=== PATIENT | male | born 1935 | race Caucasian/White ===

== ENCOUNTER 2020-02-09 20:36 | Observation (INO) ==
[2020-02-09] MEDS ORDERED: METOCLOPRAMIDE HCL INJ 5 MG/ML 2 ML VIAL IV ONE (21:13)
[2020-02-09] MEDS ORDERED: SODIUM CHLORIDE 0.9% 1000ML 500 ML IV ONE (21:13)
[2020-02-09] MEDS ORDERED: OPTIRAY 320 125ml IV PRN (21:29)
--- NOTE | 2020-02-09 21:30 | Emergency Department Note ---
ED Visit Note I assisted Dr. Oliva in the care of this patient. Please see attending attestation. Nicholas Pagan DO Resident, Family & Community Medicine, [facility] . Resident Activity Tracking Resident Involvement: Resident Care Provided Care Provided: Adult ED
[2020-02-09 21:33] LABS: Basophils # (auto) 0.02 K/uL (0-0.2); Basophils % (auto) 0.2 %; Eosinophils # (auto) 0.13 K/uL (0-0.5); Eosinophils % (auto) 1.3 %; Hemoglobin 15.6 g/dL (14.0-18.0); Immature Granulocytes # (auto) 0.01 K/uL (0.00-0.02); Immature Granulocytes % (auto) 0.1 %; Lymphocytes # (auto) 0.86 K/uL (1.2-3.4); Lymphocytes % (auto) 8.6 %; Mean Corpuscular Hemoglobin 34.8 pg (25-34); Mean Corpuscular Hgb Conc 33.9 g/dL (32-36); Mean Corpuscular Volume 102.7 fL (80-100); Mean Platelet Volume 10.8 fL (7.4-10.4); Monocytes # (auto) 0.23 K/uL (0.11-0.59); Monocytes % (auto) 2.3 %; Neutrophils # (auto) 8.77 K/uL (1.4-6.5); Neutrophils % (auto) 87.5 %; Platelet Count 170 K/uL (130-400); RDW Coefficient of Variation 13.8 % (11.5-14.5); Red Blood Count 4.48 M/uL (4.7-6.1); White Blood Count 10.02 K/uL (4.8-10.8)
[2020-02-09 21:44] LABS: Albumin Level 3.8 gm/dl (3.4-5.0); BUN Creatinine Ratio 7.6 (10-20); Bilirubin,Total 0.7 mg/dl (0.2-1); Calcium 9.1 mg/dl (8.5-10.1); Creatinine Clr Calc Pharmacy 35.3 ml/min; Est GFR (African American) 49.3; Est GFR (Non-African American) 42.5; Globulin 3.7 gm/dl (2.5-4.0); Magnesium 2.5 mg/dl (1.8-2.4); Partial Thromboplastin Ratio 0.8; Partial Thromboplastin Time 23.4 Seconds (21.0-31.0); Potassium 3.5 mmol/L (3.5-5.1); Prothrombin Time 10.3 Seconds (9.0-12.0); Total Protein 7.5 gm/dl (6.4-8.2)
[2020-02-09 21:52] LABS: Appearance Urine Clear (Clear); Bacteria Urine Automated Negative (Negative); Bilirubin Urine Negative (Negative); Blood Urine Trace (Negative); Color Urine Yellow; Epithelial Cell Urine Auto >30 /lpf (0-5); Glucose Urine UA Negative (Negative); Ketones Urine Negative (Negative); Leukocyte Esterase Urine Trace (Negative); Nitrite Urine Negative (Negative); Protein Urine 2+ (Negative); RBC Urine Automated 0-4 /hpf (0-4); Specific Gravity Urine 1.017 (1.000-1.030); Urobilinogen Urine Negative (Negative)
--- NOTE | 2020-02-09 21:55 | CT Scan Report ---
UNENHANCED CT OF THE BRAIN; CT ANGIOGRAM OF THE BRAIN; CT ANGIOGRAM OF THE NECK CLINICAL HISTORY: Headache. COMPARISON STUDY: CT of the brain dated 11/04/2014. TECHNIQUE: Unenhanced axial CT scan of the brain is performed. Subsequently, following the IV adminis tration of 115 of Optiray 320, CT angiogram of the head and neck was performed from the aortic arch t o the vertex. Images are reviewed in the axial, sagittal, and coronal planes. 3-D MIPS images are cre ated and assessed. IV contrast was administered without complication. All measurements were calculate d based on NASCET criteria. A dose lowering technique was utilized adhering to the principles of ALA RA. The CT angiogram of the neck is compromised by motion artifact. CT DOSE: 1076.72 mGy.cm FINDINGS: Brain parenchyma: There is age-related involutional change noting mild subcortical and periventricula r microangiopathic disease. There is no hemorrhage, mass effect, or evidence of acute territorial isc hemia by CT criteria. There is no evidence of enhancing mass lesion on the angiogram phase images. Th e ventricles, sulci, and cisterns are prominent secondary to involutional change. López-white matter d ifferentiation is preserved. No extra-axial fluid collection is seen. Thoracic aorta: There is mild atherosclerotic calcification of the thoracic aorta. Visualized portion s of the thoracic aorta are normal in caliber. The aortic arch demonstrates standard 3-vessel anatomy . Right carotid arterial system: The right common carotid artery is widely patent, as are the right int ernal and external carotid arteries. Evaluation of the proximal right carotid bulb is significantly d egraded by motion artifact. Left carotid arterial system: The left common carotid artery is widely patent, as are the left senior insight manager international al and external carotid arteries. Vertebral arteries: The vertebral arteries are widely patent bilaterally noting a right-sided dominan ce. Subclavian arteries: Widely patent bilaterally. Intracranial vasculature: The internal carotid arteries are patent at the skull base, as are the ante rior and middle cerebral arteries bilaterally. The vertebrobasilar system and posterior cerebral rashad porsha are widely patent. The right vertebral artery is dominant. There is no aneurysm, high-grade sten osis, or focal vessel cut off seen throughout the intracranial circulation. Jugular veins: Patent bilaterally. Dural sinuses: Patent. Lung apices: Partially visualized upper lobe lung parenchyma appears clear. Soft tissues: There is atherosclerotic calcification of the cavernous carotid arteries. The visualize d pharyngeal soft tissues are normal in appearance noting angiographic phase technique. The oropharyn geal airway appears widely patent. The salivary and thyroid glands are normal in appearance. No cervi bela lymphadenopathy is seen. Skeletal structures: The skeletal structures are osteopenic. The calvarium appears intact. The cervic al spine is maintained noting multilevel spondylosis. No lytic or blastic lesion is seen. Sinuses and mastoids: The paranasal sinuses are clear. The mastoid air cells are well pneumatized. IMPRESSION: 1. There is no hemorrhage, mass effect, or evidence of acute territorial ischemia by CT criteria. 2. Unremarkable CT angiogram of the brain. 3. Unremarkable CT angiogram of the neck. ACT 112: Negative or not required by law. Electronically signed by: Linwood Amador M.D. 02/09/2020 9:53 PM
[2020-02-09 22:02] LABS: Mucus Urine Present (None Prsent)
--- NOTE | 2020-02-09 22:24 | Emergency Department Note ---
Impression & Plan TIA (transient ischemic attack), Headache, Transient weakness of right lower extremity ED Provider Note Provider: Virgil Oliva MD DATE OF SERVICE: 02/09/2020 CHIEF COMPLAINT: Weakness, illness HISTORY OF PRESENT ILLNESS: Patient is a 84-year-old gentleman with a history of dementia, CAD status post stenting, esophagitis, hyperlipidemia and presented via ambulance from home today after an episode began around 7 PM this evening. Was doing a puzzle and sudden onset of posterior head pain with some confusion mumbling speech and significant right leg weakness. Patient self has some mahesh ntia and does not remember much of the event. History was gained from the patient's daughter and the patient's other daughter via phone. No trauma is reported. Patient is otherwise been well and isolating recently. Patient denies weakness at this time. Moving all extremities. Patient does report a mild anterior headache. Some nausea. Family states that this episode at home lasted several minutes and then he improved quite a bit was able to walk to the stretcher of the ambulance to come here. No history of similar. REVIEW OF SYSTEMS: A total of 10 review of systems was obtained and negative except as stated above in the HPI. PAST MEDICAL HISTORY: As noted above MEDICATIONS: Reviewed medication list and include significantly aspirin SOCIAL HISTORY: and lives at home PHYSICAL EXAM: GENERAL: alert and oriented in no acute distress on stretcher, limited recollection of events of tonight. Head: normocephalic and atraumatic EYES: No injection, discharge or icterus. PERRL, EOMI. NECK: Trachea midline. Supple. ENT: Mucous membranes pink and moist. LUNGS: Airway patent. No retractions. Breath sounds clear HEART: Regular rate and rhythm. No chest wall tenderness ABDOMEN: Soft and non-tender, without guarding or rebound. SKIN: Acyanotic, warm, dry, without rashes EXTREMITIES: Without swelling or tenderness of the lower extremities. NEUROLOGICAL: No focal deficits. No aphasia. No facial droop or slurred speech. Normal strength and tone in the extremities. Sensation to gross touch normal. 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 EK normal sinus rhythm. No PVCs. Left axis. No acute ST segment elevation noted. Some baseline artifact. Left axis. CONTINUOUS CARDIAC MONITORING: was ordered and showed a heart rate of 82 bpm in normal sinus rhythm Patient's hypertension was referred to the hospitalist Patient's laboratory studies and imaging reviewed. Differential includes Infection, dehydration, metabolic abnormality, hypo/hyperglycemia, electrolyte disturbance, anemia, hypoxia, cardiac sources, intracerebral event, toxicologic, neurologic, as well as other pathologies. IMPRESSION/MEDICAL DECISION MAKING: Patient presents after a brief episode of right lower extremity weakness and some mumbling speech that lasted several minutes. Now improved symptoms. CT and CTA of the head without evidence of acute bleed. No evidence acute vascular occlusion on imaging. Not a TPA candidate due to lack of symptoms at this time and thus did not make him a stroke alert. Family still states he seems a bit pale and hit little bit off but much better than before. Pacemaker interrogated without significant finding of cardiac arrhythmia per company report. EKG without significant findings. Laboratory studies without real significant abnormality other creatinines may be a little bit higher. Given a small fluid bolus. Patient is already on aspirin at home. Concerns could represent possible TIA given the focality of the weakness reported by family that has again now resolved. Do not see an acute infectious source at this time. Did have some amount of vomiting here initially but had pain is given a small mount of Reglan with improvement of symptomatologies. Given concern for TIA recommended further observation here in the hospital. Hospitalist was contacted. Doubt this represents coronavirus. DIAGNOSIS: TIA, right lower extremity weakness DISPOSITION: Hospitalist will evaluate Past Med/Surg History Social History Preferred Language: Spanish Smoking Status: Never smoker Allergies Allergies Allergy/AdvReac Type Severity Reaction Status Date / Time niacin AdvReac Intermediate flushing Verified 02/09/20 23:00 Home Meds Home Medications Medication Instructions Recorded Confirmed aspirin [Aspir-81] 81 mg PO DAILY 02/09/20 02/09/20 buspirone 5 mg PO TID 02/09/20 02/09/20 cholecalciferol (vitamin D3) 25 mcg PO DAILY 02/09/20 02/09/20 [Vitamin D3] citalopram [Celexa] 20 mg PO DAILY 02/09/20 02/09/20 famotidine 20 mg PO DAILY 02/09/20 02/09/20 hydroxyzine HCl 25 mg PO Q6 PRN 02/09/20 02/09/20 nitroglycerin [Nitrostat] 0.4 mg SUBLINGUAL UD PRN 02/09/20 02/09/20 omega 2-svy-lrv-fish oil [Fish Oil] 1 cap PO DAILY 02/09/20 02/09/20 omeprazole 20 mg PO DAILY 02/09/20 02/09/20 polyethylene glycol 3350 [Miralax] 17 g PO DAILY PRN 02/09/20 02/09/20 pyridoxine (vitamin B6) [Vitamin 100 mg PO DAILY 02/09/20 02/09/20 B-6] rosuvastatin 40 mg PO DAILY 02/09/20 02/09/20 triamcinolone acetonide 1 applic TOPICAL BID PRN 02/09/20 02/09/20 Results & Data (ED) Vital Signs Vital Signs - 24 hr 02/09/20 20:38 02/09/20 21:47 02/09/20 23:00 Temperature 37.2 C Temperature Source Oral Pulse Rate 66 Pulse Rate [Right Finger] 84 68 Pulse Rhythm [Right Finger] Regular Regular Pulse Strength [Right Finger] Normal Normal Respiratory Rate 20 20 20 Respiratory Effort / Characteristics Non-Labored Spontaneous Non-Labored Spontaneous Non-Labored Respiratory Depth Normal Normal Normal Respiratory Pattern Regular Regular Blood Pressure 145/86 H Blood Pressure [Right Arm] 120/67 95/60 L Blood Pressure Mean 105 Blood Pressure Mean [Right Arm] 84 71 Blood Pressure Position Sitting Pulse Oximetry 97 96 98 Oxygen Delivery Method Room Air Room Air Sepsis Recent Fever Within 48 Hours No Sepsis Action Taken by Nursing No Action Required Laboratory Data Result diagrams: 02/09/20 20:45 02/09/20 20:45 Lab Results 02/09/20 02/09/20 02/09/20 Range/Units 20:45 20:45 20:45 WBC 10.02 (4.8-10.8) K/uL RBC 4.48 L (4.7-6.1) M/uL Hgb 15.6 (14.0-18.0) g/dL Hct 46.0 (42-52) % MCV 102.7 H (80-100) fL MCH 34.8 H (25-34) pg MCHC 33.9 (32-36) g/dL RDW Std Deviation 52.0 H (36.4-46.3) fL RDW Coeff of Mirta 13.8 (11.5-14.5) % Plt Count 170 (130-400) K/uL MPV 10.8 H (7.4-10.4) fL Immature Gran % (Auto) 0.1 % Neut % (Auto) 87.5 % Lymph % (Auto) 8.6 % Guthrie % (Auto) 2.3 % Eos % (Auto) 1.3 % Baso % (Auto) 0.2 % Immature Gran # (Auto) 0.01 (0.00-0.02) K/uL Neut # (Auto) 8.77 H (1.4-6.5) K/uL Lymph # (Auto) 0.86 L (1.2-3.4) K/uL Guthrie # (Auto) 0.23 (0.11-0.59) K/uL Eos # (Auto) 0.13 (0-0.5) K/uL Baso # (Auto) 0.02 (0-0.2) K/uL PT 10.3 (9.0-12.0) Seconds INR 1.0 (0.9-1.1) APTT 23.4 (21.0-31.0) Seconds PTT Ratio 0.8 Sodium 141 (136-145) mmol/L Potassium 3.5 (3.5-5.1) mmol/L Chloride 107 (98-107) mmol/L Carbon Dioxide 28 (21-32) mmol/L Anion Gap 6.0 (3-11) BUN 11 (7-18) mg/dl Creatinine 1.48 H (0.6-1.4) mg/dl Est Cr Clr Drug Dosing 35.3 ml/min Est GFR ( Amer) 49.3 Est GFR (Non-Af Amer) 42.5 BUN/Creatinine Ratio 7.6 L (10-20) Glucose 90 (70-99) mg/dl Calcium 9.1 (8.5-10.1) mg/dl Magnesium 2.5 H (1.8-2.4) mg/dl Total Bilirubin 0.7 (0.2-1) mg/dl AST 61 H (15-37) U/L ALT 70 (12-78) U/L Alkaline Phosphatase 128 H (45-117) U/L Total Protein 7.5 (6.4-8.2) gm/dl Albumin 3.8 (3.4-5.0) gm/dl Globulin 3.7 (2.5-4.0) gm/dl Albumin/Globulin Ratio 1.0 (0.9-2) TSH 2.070 (0.300-4.500) uIu/ml Specimen Hemolysis Urine Color Urine Appearance (Clear) Urine pH (4.5-7.5) Ur Specific Barre (1.000-1.030) Urine Protein (Negative) Urine Glucose (UA) (Negative) Urine Ketones (Negative) Urine Blood (Negative) Urine Nitrite (Negative) Urine Bilirubin (Negative) Urine Urobilinogen (Negative) Ur Leukocyte Esterase (Negative) Urine WBC (Auto) (0-5) /hpf Urine RBC (Auto) (0-4) /hpf U Hyaline Cast (Auto) (0-5) /lpf U Epithel Cells (Auto) (0-5) /lpf Urine Bacteria (Auto) (Negative) Ur Renal Epithelial Cell Urine Mucus (None Prsent) 02/09/20 Range/Units 20:45 WBC (4.8-10.8) K/uL RBC (4.7-6.1) M/uL Hgb (14.0-18.0) g/dL Hct (42-52) % MCV (80-100) fL MCH (25-34) pg MCHC (32-36) g/dL RDW Std Deviation (36.4-46.3) fL RDW Coeff of Mirta (11.5-14.5) % Plt Count (130-400) K/uL MPV (7.4-10.4) fL Immature Gran % (Auto) % Neut % (Auto) % Lymph % (Auto) % Guthrie % (Auto) % Eos % (Auto) % Baso % (Auto) % Immature Gran # (Auto) (0.00-0.02) K/uL Neut # (Auto) (1.4-6.5) K/uL Lymph # (Auto) (1.2-3.4) K/uL Guthrie # (Auto) (0.11-0.59) K/uL Eos # (Auto) (0-0.5) K/uL Baso # (Auto) (0-0.2) K/uL PT (9.0-12.0) Seconds INR (0.9-1.1) APTT (21.0-31.0) Seconds PTT Ratio Sodium (136-145) mmol/L Potassium (3.5-5.1) mmol/L Chloride (98-107) mmol/L Carbon Dioxide (21-32) mmol/L Anion Gap (3-11) BUN (7-18) mg/dl Creatinine (0.6-1.4) mg/dl Est Cr Clr Drug Dosing ml/min Est GFR ( Amer) Est GFR (Non-Af Amer) BUN/Creatinine Ratio (10-20) Glucose (70-99) mg/dl Calcium (8.5-10.1) mg/dl Magnesium (1.8-2.4) mg/dl Total Bilirubin (0.2-1) mg/dl AST (15-37) U/L ALT (12-78) U/L Alkaline Phosphatase (45-117) U/L Total Protein (6.4-8.2) gm/dl Albumin (3.4-5.0) gm/dl Globulin (2.5-4.0) gm/dl Albumin/Globulin Ratio (0.9-2) TSH (0.300-4.500) uIu/ml Specimen Hemolysis Urine Color Yellow Urine Appearance Clear (Clear) Urine pH 6.0 (4.5-7.5) Ur Specific Barre 1.017 (1.000-1.030) Urine Protein 2+ H (Negative) Urine Glucose (UA) Negative (Negative) Urine Ketones Negative (Negative) Urine Blood Trace H (Negative) Urine Nitrite Negative (Negative) Urine Bilirubin Negative (Negative) Urine Urobilinogen Negative (Negative) Ur Leukocyte Esterase Trace H (Negative) Urine WBC (Auto) 5-10 H (0-5) /hpf Urine RBC (Auto) 0-4 (0-4) /hpf U Hyaline Cast (Auto) 10-30 H (0-5) /lpf U Epithel Cells (Auto) >30 H (0-5) /lpf Urine Bacteria (Auto) Negative (Negative) Ur Renal Epithelial Cell Not Reportable Urine Mucus Present A (None Prsent) Administered Medications Ioversol (Optiray 320 125ml) 115 ml IV ONCE PRN PRN Reason: Interaction Checking Stop: 02/13/20 21:28 Last Admin: 02/09/20 21:35 Dose: 115 ml Documented by: [id number] Discontinued Medications Sodium Chloride (Nss 1000ml) 500 mls @ 999 mls/hr IV .Q31M ONE Stop: 02/09/20 21:43 Last Infusion: 02/09/20 22:32 Dose: 0 mls/hr Documented by: [id number] Admin: 02/09/20 21:47 Dose: 999 mls/hr Documented by: [id number] Metoclopramide HCl (Reglan) 5 mg IV ONE ONE Stop: 02/09/20 21:14 Last Admin: 02/09/20 21:47 Dose: 5 mg Documented by: [id number] Discharge Plan Visit Data Chief Complaint: Head Pain Stated Complaint: head pain ED Provider: Virgil Oliva ED Midlevel Provider: Nicholas Pagan Discharge Problem: TIA (transient ischemic attack), Headache, Transient weakness of right lower extremity Patient Disposition: Being Evaluated by Hospitalist Condition: Fair Forms Stand Alone Forms: [facility] Prescriptions Prescriptions: No Action buspirone 5 mg tablet 5 mg PO TID RF: 0 polyethylene glycol 3350 [Miralax] 17 gram Powder In Packet 17 g PO DAILY PRN (Reason: Constipation) RF: 0 triamcinolone acetonide 0.5 % cream 1 applic TOPICAL BID PRN (Reason: BREAKOUTS) RF: 0 aspirin [Aspir-81] 81 mg Tablet,Delayed Release (Dr/Ec) 81 mg PO DAILY RF: 0 citalopram [Celexa] 20 mg tablet 20 mg PO DAILY RF: 0 famotidine 20 mg tablet 20 mg PO DAILY RF: 0 nitroglycerin [Nitrostat] 0.4 mg Tablet, Sublingual 0.4 mg sublingual UD PRN (Reason: Chest Pain) RF: 0 omeprazole 20 mg capsule,delayed release(DR/EC) 20 mg PO DAILY RF: 0 hydroxyzine HCl 25 mg tablet 25 mg PO Q6 PRN (Reason: Itching) RF: 0 pyridoxine (vitamin B6) [Vitamin B-6] 100 mg Tablet 100 mg PO DAILY RF: 0 rosuvastatin 40 mg tablet 40 mg PO DAILY RF: 0 cholecalciferol (vitamin D3) [Vitamin D3] 25 mcg (1,000 unit) Tablet 25 mcg PO DAILY RF: 0 omega 8-fvy-eve-fish oil [Fish Oil] 1,000 mg (120 mg-180 mg) Capsule 1 cap PO DAILY RF: 0 Referrals Referrals: Marcus Hughes DO [Primary Care Provider] -
[2020-02-09 22:30] LABS: Thyroid Stimulating Hormone 2.07 uIu/ml (0.300-4.500)
--- NOTE | 2020-02-09 22:59 | XRay Report ---
SINGLE VIEW CHEST CLINICAL HISTORY: Renal failure. FINDINGS: 2 AP, portable, upright chest radiographs are compared to study dated 11/24/2017. The examina tion is degraded by portable technique and patient rotation. A 2-lead cardiac pacemaker is unchanged in position. The heart is enlarged noting atherosclerotic calcification of the thoracic aorta. The pu lmonary vasculature is noncongested. There is a large hiatal hernia. Scarring/atelectasis is noted at the lung bases. No airspace consolidation or large pleural effusion is identified. No pneumothorax i s seen. The skeletal structures are osteopenic. The bony thorax is grossly intact. 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 IMPRESSION: 1. Cardiomegaly and cardiac pacemaker. There is no radiographic evidence of congestive failure. 2. Large hiatal hernia. 3. No airspace consolidation or large pleural effusion is identified. ACT 112: Negative or not required by law. Electronically signed by: Linwood Amador M.D. 02/09/2020 10:58 PM
--- NOTE | 2020-02-09 23:22 | History & Physical Report ---
Date of Service February 09, 2020 Assessment & Plan (1) Transient weakness of right lower extremity: ? Possible TIA ? Possible aspirin failure CAD status post stent SSS sp PPM, paced rhythm (no A. fib on pacemaker interrogation found in ER chart) hypertension, initially high upon arrival at the ER currently 90s to 100s hyperlipidemia on statin Rx CRI, creatinine close to baseline dementia, sundowning symptoms more manageable after recent BuSpar Rx as per family Prediabetes hemoglobin A1c 5.28 March 2019 past cigar use OBS Medical telemetry Neurochecks Plavix for possible aspirin failure until TIA/new stroke ruled out Repeat CT head in a.m. RE TIA (MRI precluded by pacemaker) Neurology consult pending work-up results DVT prophylaxis Heparin subcu Full code Patient's daughter requesting updates from providers. Ms. Cookie Pierce, contact #[phone]. Secondary contacts include : Ms. Latrice Ortega (), contact #[phone]. Ms. Angela Macdonald (daughter), contact #[phone]. Text document was generated using [employer] voice recognition software. It may contain grammatical or spelling errors. Kindly contact undersigned for clarification of any documentation item in question. History of Present Illness Chief Complaint: Taking my teeth out as per patient Transient right leg weakness as per family Primary Care Provider: Marcus Hughes, History obtained from patient, family, and records. Limited history from patient secondary to dementia. Medical history significant for CAD status post stent, SSS sp PPM, hypertension, hyperlipidemia, CRI (baseline creatinine 1.3-1.4), dementia, past cigar use. Last confinement October 2014 for near syncopal event. As per family account, patient was doing a puzzle around 7 PM when he complained a posterior headache. Patient subsequently looks tired and weak as per family. Patient could not move his right leg for a few minutes as per son-in-law/yomaira ghter. Patient family worried about patient not staying hydrated. Patient able to walk to ambulance upon EMS arrival without a problem as per daughter. Emesis symptoms upon arrival at the ER. Patient denies abdominal pain, dysuria, constipation/diarrhea symptoms. No chest pain, no S OB. Patient currently at baseline mentation at the ER as per family. Patient has no recollection of events leading to ER visit from a few hours ago. No prior episodes as per daughter. Patient compliant with home meds. 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, lives with ( is primary caregiver) Allergies Allergy/AdvReac Type Severity Reaction Status Date / Time niacin AdvReac Intermediate flushing Verified 02/09/20 23:00 quetiapine [From Seroquel] AdvReac Intermediate agitation Verified 02/10/20 00:34 trazodone AdvReac Intermediate agitation Verified 02/10/20 00:34 ELENA Inhibitors AdvReac Unknown Intolerance Verified 02/10/20 02:04 as per records Beta-Blockers AdvReac Unknown Intolerance Verified 02/10/20 02:05 (Beta-Adrenergic Bloc as per records Home Medications Home Medications Medication Instructions Recorded Confirmed Type aspirin [Aspir-81] 81 mg PO DAILY 02/09/20 02/09/20 History buspirone 5 mg PO TID 02/09/20 02/09/20 History cholecalciferol (vitamin D3) 25 mcg PO DAILY 02/09/20 02/09/20 History [Vitamin D3] citalopram [Celexa] 20 mg PO DAILY 02/09/20 02/09/20 History famotidine 20 mg PO DAILY 02/09/20 02/09/20 History hydroxyzine HCl 25 mg PO Q6 PRN 02/09/20 02/09/20 History nitroglycerin [Nitrostat] 0.4 mg SUBLINGUAL UD PRN 02/09/20 02/09/20 History omega 4-zqq-ooy-fish oil [Fish Oil] 1 cap PO DAILY 02/09/20 02/09/20 History omeprazole 20 mg PO DAILY 02/09/20 02/09/20 History polyethylene glycol 3350 [Miralax] 17 g PO DAILY PRN 02/09/20 02/09/20 History pyridoxine (vitamin B6) [Vitamin 100 mg PO DAILY 02/09/20 02/09/20 History B-6] rosuvastatin 40 mg PO DAILY 02/09/20 02/09/20 History triamcinolone acetonide 1 applic TOPICAL BID PRN 02/09/20 02/09/20 History Past Med/Surg History Social History Preferred Language: [place] Island[place] Communication Ability: Effective Financial Accounting Analyst Required: No Beliefs That Will Affect Care: None Current Living Situation: Spouse Current Living Situation Comment: Lives with ? Feels Safe at Home: Yes Safety Concerns: Feels Safe At This Time Smoking Status: Light tobacco smoker Tobacco Type: pipe ; Cigarettes Per Day: "every so often" "2-3 times a year" ; Hx Alcohol Use: Yes Alcohol type: hard liquor Hx Substance Use: No Review of Systems Review of Systems: Could not be reliably obtained Physical Exam Physical Exam: GENERAL: Comfortable, pleasant, demented, no respiratory distress SKIN: Normal color, warm HEENT: [place] palpebral conjunctivae, no ptosis, dry buccal mucosa NECK : Supple, no tenderness CHEST : CTA, no tenderness HEART : RRR, no obvious murmurs ABDOMEN: Soft, nontender EXTREMITIES : No LE swelling, no LE tenderness, no other conspicuous deformities noted NEUROLOGIC : Demented but coherent, chronic upper lip symmetry as per daughter, mild hearing impairment, no other gross focality Results & Data Results & Data ([facility]) Vital Signs (Past 12 Hours) Vital Signs Temp Pulse Pulse Resp BP BP Pulse Ox 02/09/20 23:00 68 20 95/60 L 98 02/09/20 21:47 84 20 120/67 96 02/09/20 20:38 37.2 C 66 20 145/86 H 97 Laboratory Results Laboratory Results WBC 10.02 K/uL (4.8-10.8) 02/09/20 20:45 RBC 4.48 M/uL (4.7-6.1) L 02/09/20 20:45 Hgb 15.6 g/dL (14.0-18.0) 02/09/20 20:45 Hct 46.0 % (42-52) 02/09/20 20:45 MCV 102.7 fL (80-100) H 02/09/20 20:45 MCH 34.8 pg (25-34) H 02/09/20 20:45 MCHC 33.9 g/dL (32-36) 02/09/20 20:45 RDW Std Deviation 52.0 fL (36.4-46.3) H 02/09/20 20:45 RDW Coeff of [place]ta 13.8 % (11.5-14.5) 02/09/20 20:45 Plt Count 170 K/uL (130-400) 02/09/20 20:45 MPV 10.8 fL (7.4-10.4) H 02/09/20 20:45 Immature Gran % (Auto) 0.1 % 02/09/20 20:45 Neut % (Auto) 87.5 % 02/09/20 20:45 Lymph % (Auto) 8.6 % 02/09/20 20:45 [place] % (Auto) 2.3 % 02/09/20 20:45 Eos % (Auto) 1.3 % 02/09/20 20:45 Baso % (Auto) 0.2 % 02/09/20 20:45 Immature Gran # (Auto) 0.01 K/uL (0.00-0.02) 02/09/20 20:45 Neut # (Auto) 8.77 K/uL (1.4-6.5) H 02/09/20 20:45 Lymph # (Auto) 0.86 K/uL (1.2-3.4) L 02/09/20 20:45 [place] # (Auto) 0.23 K/uL (0.11-0.59) 02/09/20 20:45 Eos # (Auto) 0.13 K/uL (0-0.5) 02/09/20 20:45 Baso # (Auto) 0.02 K/uL (0-0.2) 02/09/20 20:45 PT 10.3 Seconds (9.0-12.0) 02/09/20 20:45 INR 1.0 (0.9-1.1) 02/09/20 20:45 APTT 23.4 Seconds (21.0-31.0) 02/09/20 20:45 PTT Ratio 0.8 02/09/20 20:45 Sodium 141 mmol/L (136-145) 02/09/20 20:45 Potassium 3.5 mmol/L (3.5-5.1) 02/09/20 20:45 Chloride 107 mmol/L (98-107) 02/09/20 20:45 Carbon Dioxide 28 mmol/L (21-32) 02/09/20 20:45 Anion Gap 6.0 (3-11) 02/09/20 20:45 BUN 11 mg/dl (7-18) 02/09/20 20:45 Creatinine 1.48 mg/dl (0.6-1.4) H 02/09/20 20:45 Est Cr Clr Drug Dosing 35.3 ml/min 02/09/20 20:45 Est GFR ( Amer) 49.3 02/09/20 20:45 Est GFR (Non-Af Amer) 42.5 02/09/20 20:45 BUN/Creatinine Ratio 7.6 (10-20) L 02/09/20 20:45 Glucose 90 mg/dl (70-99) 02/09/20 20:45 Calcium 9.1 mg/dl (8.5-10.1) 02/09/20 20:45 Magnesium 2.5 mg/dl (1.8-2.4) H 02/09/20 20:45 Total Bilirubin 0.7 mg/dl (0.2-1) 02/09/20 20:45 AST 61 U/L (15-37) H 02/09/20 20:45 ALT 70 U/L (12-78) 02/09/20 20:45 Alkaline Phosphatase 128 U/L (45-117) H 02/09/20 20:45 Total Protein 7.5 gm/dl (6.4-8.2) 02/09/20 20:45 Albumin 3.8 gm/dl (3.4-5.0) 02/09/20 20:45 Globulin 3.7 gm/dl (2.5-4.0) 02/09/20 20:45 Albumin/Globulin Ratio 1.0 (0.9-2) 02/09/20 20:45 TSH 2.070 uIu/ml (0.300-4.500) 02/09/20 20:45 Specimen Hemolysis 02/09/20 20:45 Urine Color Yellow 02/09/20 20:45 Urine Appearance Clear (Clear) 02/09/20 20:45 Urine pH 6.0 (4.5-7.5) 02/09/20 20:45 Ur Specific [place] 1.017 (1.000-1.030) 02/09/20 20:45 Urine Protein 2+ (Negative) H 02/09/20 20:45 Urine Glucose (UA) Negative (Negative) 02/09/20 20:45 Urine Ketones Negative (Negative) 05/22/20 20:45 Urine Blood Trace (Negative) H 02/09/20 20:45 Urine Nitrite Negative (Negative) 02/09/20 20:45 Urine Bilirubin Negative (Negative) 02/09/20 20:45 Urine Urobilinogen Negative (Negative) 02/09/20 20:45 Ur Leukocyte Esterase Trace (Negative) H 02/09/20 20:45 Urine WBC (Auto) 5-10 /hpf (0-5) H 02/09/20 20:45 Urine RBC (Auto) 0-4 /hpf (0-4) 02/09/20 20:45 U Hyaline Cast (Auto) 10-30 /lpf (0-5) H 02/09/20 20:45 U Epithel Cells (Auto) >30 /lpf (0-5) H 02/09/20 20:45 Urine Bacteria (Auto) Negative (Negative) 02/09/20 20:45 Ur Renal Epithelial Cell Not Reportable 02/09/20 20:45 Urine Mucus Present (None Prsent) A 02/09/20 20:[address] head: 1. There is no hemorrhage, mass effect, or evidence of acute territorial ischemia by CT criteria. CT angiogram head and neck : unremarkable Chest x-ray : 1. Cardiomegaly and cardiac pacemaker. There is no radiographic evidence of congestive failure. 2. Large hiatal hernia. 3. No airspace consolidation or large pleural effusion is identified. EKG as per my interpretation : Rate 75, NSR, LAD, LAFB, diffuse T wave flattening
[2020-02-09] MEDS ORDERED: CLOPIDOGREL BISULFATE 75 MG TAB PO ONE (23:25)
[2020-02-10] MEDS ORDERED: OLANZapine 10 MG/2.1 ML SDV IM PRN (00:53)
[2020-02-10] MEDS ORDERED: POLYETHYLENE (MIRALAX) 17 GM PACK PO PRN (00:53)
[2020-02-10] MEDS ORDERED: LACTATED RINGER'S 1,000 ML IV ONE (00:53)
[2020-02-10] MEDS ORDERED: PROMETHAZINE HCL 12.5 MG in SODIUM CHLORIDE 0.9% 50 ML IV PRN (00:53)
[2020-02-10] MEDS ORDERED: ACETAMINOPHEN 325 MG TAB PO PRN (00:53)
[2020-02-10] MEDS ORDERED: PNEUMOCOCCAL ADMINISTRATION CHARGE ONE (01:45)
[2020-02-10] MEDS ORDERED: PNEUMOCOCCAL POLYSACCHARIDES 25 MCG/0.5 ML VIAL/SYR IM ONE (01:45)
[2020-02-10 06:02] LABS: Basophils # (auto) 0.02 K/uL (0-0.2); Basophils % (auto) 0.1 %; Hematocrit (blood only) 36.9 % (42-52); Hemoglobin 12.4 g/dL (14.0-18.0); Immature Granulocytes # (auto) 0.03 K/uL (0.00-0.02); Immature Granulocytes % (auto) 0.2 %; Lymphocytes # (auto) 0.71 K/uL (1.2-3.4); Lymphocytes % (auto) 5.1 %; Mean Corpuscular Hemoglobin 34.3 pg (25-34); Mean Corpuscular Hgb Conc 33.6 g/dL (32-36); Mean Corpuscular Volume 102.2 fL (80-100); Mean Platelet Volume 10.7 fL (7.4-10.4); Monocytes # (auto) 1.42 K/uL (0.11-0.59); Monocytes % (auto) 10.2 %; Neutrophils # (auto) 11.74 K/uL (1.4-6.5); Neutrophils % (auto) 84.4 %; Platelet Count 132 K/uL (130-400); RDW Coefficient of Variation 13.8 % (11.5-14.5); RDW Standard Deviation 51.5 fL (36.4-46.3); Red Blood Count 3.61 M/uL (4.7-6.1); White Blood Count 13.92 K/uL (4.8-10.8)
[2020-02-10] MEDS: HEPARIN SOD 5,000 UNIT/0.5 ML VIAL SQ SCH ×3 (06:02→21:31)
[2020-02-10 06:18] LABS: BUN Creatinine Ratio 7.7 (10-20); Calcium 8.1 mg/dl (8.5-10.1); Creatinine Clr Calc Pharmacy 36.4 ml/min; Est GFR (African American) 52.3; Est GFR (Non-African American) 45.1; Potassium 3.9 mmol/L (3.5-5.1)
[2020-02-10] MEDS: ASPIRIN 81 MG ECTAB PO SCH (09:31)
[2020-02-10] MEDS: CLOPIDOGREL BISULFATE 75 MG TAB PO SCH (09:32)
[2020-02-10] MEDS: PYRIDOXINE HCL 50 MG TAB PO SCH (09:32)
[2020-02-10] MEDS: FAMOTIDINE 20 MG TAB PO SCH (09:32)
[2020-02-10] MEDS: ROSUVASTATIN CALCIUM 20 MG TAB PO SCH (09:32)
[2020-02-10] MEDS: PANTOprazole 40 MG TAB PO SCH (09:33)
[2020-02-10] MEDS: CITALOPRAM 20 MG TAB PO SCH (09:33)
--- NOTE | 2020-02-10 12:06 | Electrocardiogram Report ---
Test Reason : Blood Pressure : / mmHG Vent. Rate : 074 BPM Atrial Rate : 074 BPM P-R Int : 152 ms QRS Dur : 082 ms QT Int : 380 ms P-R-T Axes : 000 -40 090 degrees QTc Int : 421 ms Poor data quality, interpretation may be adversely affected Normal sinus rhythm Left axis deviation Nonspecific ST and T wave abnormality Abnormal ECG When compared with ECG of 25-NOV-2017 09:44, Sinus rhythm has replaced Electronic atrial pacemaker Nonspecific T wave abnormality no longer evident in Inferior leads Nonspecific T wave abnormality, worse in Lateral leads Confirmed by Will Fuller ([id number]) on 02/10/2020 12:06:03 PM Referred By: REFERRED SELF Confirmed By:Will Fuller
--- NOTE | 2020-02-10 15:46 | CT Scan Report ---
HEAD CT NONCONTRAST CT DOSE: 537.48 mGy.cm HISTORY: Headache. Follow-up. Transient ischemic attack. TECHNIQUE: Multiaxial CT images of the head were performed without the use of intravenous contrast. A utomated exposure control was utilized for this study. A dose lowering technique was utilized adheri ng to the principles of ALARA. Comparison: Head CT 02/07/2020. Findings: The paranasal sinuses and mastoid air cells are clear. The calvarium and skull base are int act. There is no mass, hematoma, midline shift, acute infarct. White matter hypodensity is nonspecifi c but suggestive of microvascular ischemic change. The ventricles and sulci demonstrate mild age-rela arturo involutional changes. Impression: No significant change compared to the prior study. No acute intracranial abnormality. ACT 112: Negative or not required by law. Electronically signed by: Kameron Mathew M.D. 02/10/2020 3:45 PM
--- NOTE | 2020-02-10 16:19 | Hospitalist Progress Note ---
Date of Service February 10, 2020 Assessment & Plan (1) Transient weakness of right lower extremity: Stoke like symptoms Probable TIA CT Head:There is no hemorrhage, mass effect, or evidence of acute territorial ischemia by CT criteria. Head CTA:Unremarkable CT angiogram of the brain. Neck CTA:Unremarkable CT angiogram of the neck. Repeat CT Head:No significant change compared to the prior study. No acute intracranial abnormality. Could not get MRI secondary to pacemaker No focal deficits on exam Continue aspirin, Plavix Will advised to follow-up with neurology as outpatient Continue Crestor PT/OT eval Fall precautions Leukocytosis No obvious source of infection Likely reactive Monitor Abnormal UA No signs of sepsis Urine Cx pending Low threshold to start antibiotics CAD S/P stent Continue Aspirin, Crestor SSS S/P PPM, paced rhythm CKD III Monitor renal function avoid Nephrotoxins as able Dementia Continue home meds DVT Px: Heparin SQ Code Status Full code Disposition PT/OT prior to discharge Admission and Anticipated Discharge Date Admission Date: February 09, 2020 Subjective Patient is seen and examined at bedside Offers no complaints Comfortably lying in bed Repeat CT head no acute findings Discussed with patient's family in detail Denies any chest pain, shortness breath, dizziness, nausea, abdominal pain Review of Systems Review of Systems: All systems reviewed & are unremarkable except as noted in HPI & below Physical Exam Physical Exam: Physical Exam: Vitals signs as noted above General Appearance:Moderately built and nourished, no apparent distress Head: normocephalic, Atraumatic Eyes: normal inspection, EOMI Neck: supple, Trachea midline Respiratory/Chest: Normal breath sounds, CTA Cardiovascular: S1, S2, No murmur Abdomen/GI:Soft, Non tender, Bowel sounds present Extremities/Musculoskelatal:normal inspection, no edema Neurologic/Psych:Alert, awake, grossly no focal neurological deficits Skin: normal color, warm Results & Data Results & Data ([facility]) Vital Signs (Past 12 Hours) Vital Signs Temp Pulse Resp BP BP Pulse Ox 02/10/20 14:43 36.6 C 69 21 97/61 L 95 02/10/20 12:00 36.6 C 61 18 97/67 L 94 02/10/20 08:05 36.3 C L 71 20 93/61 L 95 02/10/20 04:39 36.6 C 65 18 96/64 L 96 Laboratory Results Short CBC 02/09/20 02/10/20 Range/Units 20:45 05:29 WBC 10.02 13.92 H (4.8-10.8) K/uL Hgb 15.6 12.4 L D (14.0-18.0) g/dL Hct 46.0 36.9 L (42-52) % Plt Count 170 132 (130-400) K/uL BMP 02/09/20 02/10/20 20:45 05:29 Sodium 141 141 Potassium 3.5 3.9 Chloride 107 111 H Carbon Dioxide 28 25 BUN 11 11 Creatinine 1.48 H 1.41 H Glucose 90 126 H Calcium 9.1 8.1 L Liver Function 02/09/20 Range/Units 20:45 Total Bilirubin 0.7 (0.2-1) mg/dl AST 61 H (15-37) U/L ALT 70 (12-78) U/L Alkaline Phosphatase 128 H (45-117) U/L Albumin 3.8 (3.4-5.0) gm/dl Urine 02/09/20 Range/Units 20:45 Urine Color Yellow Urine Appearance Clear (Clear) Urine pH 6.0 (4.5-7.5) Ur Specific [place] 1.017 (1.000-1.030) Urine Protein 2+ H (Negative) Urine Glucose (UA) Negative (Negative)
[2020-02-11] MEDS: HEPARIN SOD 5,000 UNIT/0.5 ML VIAL SQ SCH ×2 (05:38→13:55)
[2020-02-11 06:11] LABS: Hematocrit (blood only) 38.7 % (42-52); Mean Corpuscular Hemoglobin 34.2 pg (25-34); Mean Corpuscular Hgb Conc 33.6 g/dL (32-36); Mean Corpuscular Volume 101.8 fL (80-100); Mean Platelet Volume 10.3 fL (7.4-10.4); Platelet Count 135 K/uL (130-400); RDW Coefficient of Variation 13.9 % (11.5-14.5); RDW Standard Deviation 51.7 fL (36.4-46.3); White Blood Count 6.52 K/uL (4.8-10.8)
[2020-02-11 06:35] LABS: BUN Creatinine Ratio 8.5 (10-20); Calcium 8.5 mg/dl (8.5-10.1); Creatinine Clr Calc Pharmacy 35.9 ml/min; Est GFR (African American) 51.4; Est GFR (Non-African American) 44.3; Potassium 3.5 mmol/L (3.5-5.1)
[2020-02-11] MEDS: PYRIDOXINE HCL 50 MG TAB PO SCH (08:43)
[2020-02-11] MEDS: ASPIRIN 81 MG ECTAB PO SCH (08:44)
[2020-02-11] MEDS: ROSUVASTATIN CALCIUM 20 MG TAB PO SCH (08:44)
[2020-02-11] MEDS: PANTOprazole 40 MG TAB PO SCH (08:45)
[2020-02-11] MEDS: CLOPIDOGREL BISULFATE 75 MG TAB PO SCH (08:45)
[2020-02-11] MEDS: CITALOPRAM 20 MG TAB PO SCH (08:45)
[2020-02-11] MEDS: FAMOTIDINE 20 MG TAB PO SCH (08:46)
--- NOTE | 2020-02-11 13:48 | Hospitalist Progress Note ---
Date of Service February 11, 2020 Assessment & Plan (1) Transient weakness of right lower extremity: Stoke like symptoms Probable TIA CT Head:There is no hemorrhage, mass effect, or evidence of acute territorial ischemia by CT criteria. Head CTA:Unremarkable CT angiogram of the brain. Neck CTA:Unremarkable CT angiogram of the neck. Repeat CT Head:No significant change compared to the prior study. No acute intracranial abnormality. Could not get MRI secondary to pacemaker No focal deficits on exam Continue aspirin, Plavix Advised to follow-up with neurology as outpatient Continue Crestor PT/OT eval: Ok to return Home Fall precautions Plan to continue Aspirin and Plavix for 3 weeks and then transition to Plavix alone Leukocytosis No obvious source of infection Likely reactive WBC count normalized Urine Cx:Pinpoint growth--Pending Afebrile Abnormal UA No signs of sepsis Urine Cx [place] growth--pending CAD S/P stent Continue Aspirin, Crestor SSS S/P PPM, paced rhythm CKD III Monitor renal function avoid Nephrotoxins as able Dementia Continue home meds DVT Px: Heparin SQ Code Status Full code Disposition Home Admission and Anticipated Discharge Date Admission Date: February 09, 2020 Subjective Patient is seen and examined at bedside Agitated overnight as per RN Offers no new complaints this morning Comfortably lying in bed Discussed with patient's daughter in detail Denies any chest pain, shortness breath, dizziness, nausea, abdominal pain Plan to discharge home today Review of Systems Review of Systems: All systems reviewed & are unremarkable except as noted in HPI & below Physical Exam Physical Exam: Physical Exam: Vitals signs as noted above General Appearance:Moderately built and nourished, no apparent distress Head: normocephalic, Atraumatic Eyes: normal inspection, EOMI Neck: supple, Trachea midline Respiratory/Chest: Normal breath sounds, CTA Cardiovascular: S1, S2, No murmur Abdomen/GI:Soft, Non tender, Bowel sounds present Extremities/Musculoskelatal:normal inspection, no edema Neurologic/Psych:Alert, awake, grossly no focal neurological deficits Skin: normal color, warm Results & Data Results & Data ([facility]) Vital Signs (Past 12 Hours) Vital Signs Temp Pulse Pulse Resp BP BP Pulse Ox 02/11/20 08:52 36.8 C 62 17 156/96 H 98 02/11/20 07:00 73 02/11/20 03:25 36.8 C 65 20 119/75 98 Laboratory Results Short CBC 02/11/20 Range/Units 05:55 WBC 6.52 (4.8-10.8) K/uL Hgb 13.0 L (14.0-18.0) g/dL Hct 38.7 L (42-52) % Plt Count 135 (130-400) K/uL BMP 02/11/20 05:55 Sodium 140 Potassium 3.5 Chloride 109 H Carbon Dioxide 23 BUN 12 Creatinine 1.43 H Glucose 104 H Calcium 8.5
--- NOTE | 2020-02-11 14:05 | Discharge Summary ---
Date of Service February 11, 2020 Admission HPI Per Admitting Provider History obtained from patient, family, and records. Limited history from patient secondary to dementia. Medical history significant for CAD status post stent, SSS sp PPM, hypertension, hyperlipidemia, CRI (baseline creatinine 1.3-1.4), dementia, past cigar use. Last confinement October 2014 for near syncopal event. As per family account, patient was doing a puzzle around 7 PM when he complained a posterior headache. Patient subsequently looks tired and weak as per family. Patient could not move his right leg for a few minutes as per son-in-law/daughter. Patient family worried about patient not staying hydrated. Patient able to walk to ambulance upon EMS arrival without a problem as per daughter. Emesis symptoms upon arrival at the ER. Patient denies abdominal pain, dysuria, constipation/diarrhea symptoms. No chest pain, no S OB. Patient currently at baseline mentation at the ER as per family. Patient has no recollection of events leading to ER visit from a few hours ago. No prior episodes as per daughter. Patient compliant with home meds. 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) Admission Exam Per Admitting Provider Physical Exam Physical Exam: GENERAL: Comfortable, pleasant, demented, no respiratory distress SKIN: Normal color, warm HEENT: [place] palpebral conjunctivae, no ptosis, dry buccal mucosa NECK : Supple, no tenderness CHEST : CTA, no tenderness HEART : RRR, no obvious murmurs ABDOMEN: Soft, nontender EXTREMITIES : No LE swelling, no LE tenderness, no other conspicuous deformities noted NEUROLOGIC : Demented but coherent, chronic upper lip symmetry as per daughter, mild hearing impairment, no other gross focality Principal Diagnosis Possible Transient Ischemic Attack Discharge Data Allergies Allergy/AdvReac Type Severity Reaction Status Date / Time niacin AdvReac Intermediate flushing Verified 02/09/20 23:00 quetiapine [From Seroquel] AdvReac Intermediate agitation Verified 02/10/20 00:34 trazodone AdvReac Intermediate agitation Verified 02/10/20 00:34 ELENA Inhibitors AdvReac Unknown Intolerance Verified 02/10/20 02:04 as per records Beta-Blockers AdvReac Unknown Intolerance Verified 02/10/20 02:05 (Beta-Adrenergic Bloc as per records Consultations 02/09/20 22:25 ED Decision to Admit Stat 02/10/20 00:53 Consult Case Management - Discharge Planning Routine Consult Case Management - Discharge Planning Routine Procedures Performed CT Head:There is no hemorrhage, mass effect, or evidence of acute territorial ischemia by CT criteria. Head CTA:Unremarkable CT angiogram of the brain. Neck CTA:Unremarkable CT angiogram of the neck. Repeat CT Head:No significant change compared to the prior study. No acute intracranial abnormality. Ordered Studies 02/09/20 21:12 CT angio head w con Stat CT angio neck with con Stat CT head/brain wo con Stat 02/10/20 00:53 CT head/brain wo con Routine Hospital Course (1) Transient weakness of right lower extremity: Stoke like symptoms Probable TIA CT Head:There is no hemorrhage, mass effect, or evidence of acute territorial ischemia by CT criteria. Head CTA:Unremarkable CT angiogram of the brain. Neck CTA:Unremarkable CT angiogram of the neck. Repeat CT Head:No significant change compared to the prior study. No acute intracranial abnormality. Could not get MRI secondary to pacemaker No focal deficits on exam Continue aspirin, Plavix Advised to follow-up with neurology as outpatient Continue Crestor PT/OT eval: Ok to return Home Fall precautions Plan to continue Aspirin and Plavix for 3 weeks and then transition to Plavix alone Leukocytosis No obvious source of infection Likely reactive WBC count normalized Urine Cx:Pinpoint growth--Pending Afebrile Abnormal UA No signs of sepsis Urine Cx Pin Point growth--pending CAD S/P stent Continue Aspirin, Crestor SSS S/P PPM, paced rhythm CKD III Monitor renal function avoid Nephrotoxins as able Dementia Continue home meds DVT Px: Heparin SQ Code Status Full code Disposition Home Total Time Total Time Spent Total Time Spent (In Minutes): 28 minutes Total Time Includes: Examination of the Patient, Discharge Planning, Medication Reconciliation, Communication With Other Providers and Other Discharge Plan Discharge Items Patient Disposition: Home - Self-Care Reason For Visit: TRANSIENT RLE WEAKNESS Discharge Diagnosis: Possible Transient Ischemic Attack Condition on Discharge: Fair Activity: Per Instructions section Exercise/Sports: Gradually increase as tolerated Non-emergency contact: Primary Care Provider and Neurologist Call non-emergency contact if: you have any medication questions, your symptoms worsen, your pain is not controlled, your pain is worsening, your pain is unusual for you, your pain is concerning for you and you have a fever Follow-up/Referrals: Marcus Hughes, [Primary Care Provider] - Diet: Heart Healthy Addtl Attending Provider Instructions: Follow-up with your primary care physician Dr. Hughes in 1 week as advised Follow-up with your Neurologist in 2 to 3 weeks as advised Start taking Plavix 75 mg daily in addition to aspirin 81 mg for 3 weeks and then transition to Plavix 75 mg daily only unless instructed differently by your neurologist. Please check with your neurologist for further instructions. Your urine culture is pending at the time of discharge. Follow-up with your physician for results. Risk Factors for Stroke: You can reduce your chances of stroke by working with your medical provider to adopt a healthy lifestyle. Some specific ways to lower your chance of stroke are: * If you are a smoker, now is the time to stop smoking cigarettes * If you are diabetic, improve the control of your blood sugars * Avoid excessive amounts of alcohol * Control high blood pressure * Lose weight if you are overweight * Be sure to lead an active lifestyle * Eat a healthy diet low in salt, cholesterol and fat You should know about other risk factors for stroke that you are unable to control. These include: * Age 55 years or older * Male gender * Certain racial groups: , or / * Family History of Stroke, Mini stroke or Heart Attack * Sickle Cell Disease Follow Up: It is important for you to keep your follow up appointments with your medical provider. Who to Call and When: Medical Emergencies: Call 911 immediately if you experience any of the following warning signs and symptoms of Stroke: * Sudden numbness or weakness of the face, arm or leg, especially on one side of the body * Sudden confusion, trouble speaking or understanding * Sudden trouble seeing in one or both eyes * Sudden trouble walking, dizziness, loss of balance or coordination * Sudden severe headache with no cause Do not delay calling 911 if you experience any warning signs or symptoms of a stroke. Delay in seeking medical attention may affect what treatments can be given to you. . Pending Studies at Discharge: Yes Studies:: Urine Culture Stand-Alone Forms: [employer], Smoking Cessation Medications and DC Order Prescriptions: New clopidogrel 75 mg Tablet 75 mg PO QAM 30 Days Qty: 30 RF: 0 Continued buspirone 5 mg tablet 5 mg PO TID RF: 0 polyethylene glycol 3350 [Miralax] 17 gram Powder In Packet 17 g PO DAILY PRN (Reason: Constipation) RF: 0 triamcinolone acetonide 0.5 % cream 1 applic TOPICAL BID PRN (Reason: BREAKOUTS) RF: 0 aspirin [Aspir-81] 81 mg Tablet,Delayed Release (Dr/Ec) 81 mg PO DAILY RF: 0 citalopram [Celexa] 20 mg tablet 20 mg PO DAILY RF: 0 famotidine 20 mg tablet 20 mg PO DAILY RF: 0 nitroglycerin [Nitrostat] 0.4 mg Tablet, Sublingual 0.4 mg sublingual UD PRN (Reason: Chest Pain) RF: 0 omeprazole 20 mg capsule,delayed release(DR/EC) 20 mg PO DAILY RF: 0 hydroxyzine HCl 25 mg tablet 25 mg PO Q6 PRN (Reason: Itching) RF: 0 pyridoxine (vitamin B6) [Vitamin B-6] 100 mg Tablet 100 mg PO DAILY RF: 0 rosuvastatin 40 mg tablet 40 mg PO DAILY RF: 0 cholecalciferol (vitamin D3) [Vitamin D3] 25 mcg (1,000 unit) Tablet 25 mcg PO DAILY RF: 0 omega [id number] oil [Fish Oil] 1,000 mg (120 mg-180 mg) Capsule 1 cap PO DAILY RF: 0 Discharge Orders: Discharge Order (Routine); Ordered 02/11/20 Ordered By: Michael Muniz Admission Data Admit Date/Time: 02/09/20 23:28 Attending Provider: Michael Muniz Admit Provider: Vince Mishra Primary Care Provider: Marcus Hughes Other Providers: Vince Mishra Other Interventions: Discharge Summary Assessment (RN) Last Done: 02/11/20 14:30 DC Date/Time DO NOT enter until pt leaves facility: 02/11/20 15:45
[2020-02-11] MEDS ORDERED: Nursing to Pharmacy Communication ONE (15:41)
[2020-02-11] MEDS ORDERED: CLOPIDOGREL BISULFATE 75 MG TAB PO SCH (15:45)
== END 2020-02-11 15:45 | disposition home or self-care (01) ==
LOC: ED 20:36 → 2W 20:36

== ENCOUNTER 2023-11-24 12:22 | Inpatient (IN) ==
--- NOTE | 2023-11-24 12:37 | Emergency Department Note ---
Impression & Plan Closed hip fracture ED Provider Note NAME: GAB BRASHER AGE: 88 SEX: M : 1935 ARRIVES VIA: Ambulance INFORMANT: Patient, EMS, NH documentation ED PROVIDER(S): Vinicio Rodriguez DO CHIEF COMPLAINT: Fall HPI: The patient is an 88-year-old male who presented to the emergency department after a fall. The patient has severe dementia and is unable to give any history. The prehospital personnel were not very helpful in the history as well. Nurse home documentation was reviewed. According to the nursing documentation the patient had a fall over the last 24 hours. He could not bear weight on his right leg. He had x-rays but I am unsure what the show. It is unclear if the patient hit his head. Is unclear if the patient had syncope or was found on the floor. ROS: See above HPI for pertinent positives & negatives. A total of 10 systems reviewed and were otherwise negative. PAST MEDICAL HISTORY: See Below PAST SURGICAL HISTORY: See Below FAMILY HISTORY: See Below SOCIAL HISTORY: See Below HOME MEDICATIONS: See Below ALLERGIES: See Below VITALS: See Below PHYSICAL EXAMINATION: The patient is a waken looking around the room. He does not appear to be uncomfortable. EYES: The conjunctivae are clear. The pupils are round and reactive. EARS, NOSE, MOUTH AND THROAT: The nose is without any evidence of any deformity. NECK: The neck is nontender and supple. RESPIRATORY: Normal respiratory effort is noted there is no evidence of wheezing rhonchi or rales CARDIOVASCULAR: Regular rate and rhythm noted there no murmurs rubs or gallops normal S1 normal S2. GASTROINTESTINAL: The abdomen is soft. Abdomen is nontender. BACK: There is no step-off appreciated. MUSCULOSKELETAL/EXTREMITIES: There is no deformity of either lower extremity but the patient is having pain with extension and rotation of the right hip. SKIN: There is no obvious evidence of any rash. There are no petechiae, pallor or cyanosis noted. NEUROLOGIC: Patient is awake and oriented to person only. The patient's strength is diminished but symmetric. MEDICAL DECISION MAKING: The patient is an 88-year-old male who presented to the emergency department for a fall evaluation. The patient had a fall recently but was unable to bear weight on his right leg. He did have outpatient x-rays which showed only osteoarthritis. In our facility he appeared to have a slight lucency through the neck of the right hip. This was confirmed on CAT scan. I discussed patient's laboratory and radiographic studies with his daughter. The patient does have advanced dementia. Given his findings on x-ray it is possible he would be a candidate for minimal surgery on his hip fracture. I consulted the [facility] hospitalist as well as the on-call orthopedic physician for further evaluation. Patient was feeling comfortable immobilized in the bed. Triage Nursing notes reviewed. Prior medical records reviewed Vital Signs: reviewed and remarkable for no significant abnormalities Differential diagnosis: Fracture, dislocation, contusion, intra-abdominal, pneumothorax, intrathoracic, intracranial, neurologic, compartment syndrome, rhabdomyolysis, as well as other pathologies. ER treatment provided: See below Diagnostics interpreted by me: ECG: EKG was obtained in the emergency department. My interpretation is atrial paced rhythm with ventricular sensing. There is no hopland beats noted. This was compared to an EKG from March 31, 2020. Cardiac Monitoring: An order was placed for continuous cardiac monitoring. The monitor shows a rate of 80 bpm with paced rhythm. Laboratory studies: As stated above and show below. Imaging studies: See below. Radiographic imaging was reviewed by myself Consultation(s): I discussed this case with Dr. Mtz who is on-call for the [facility] hospitalist group. 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 Feels Safe at Home: Yes Assistive Devices: None Allergies Allergies Allergy/AdvReac Type Severity Reaction Status Date / Time clopidogrel [From Plavix] Allergy Intermediate Rash,reddened/itchy/puffy Verified 11/24/23 15:13 eyes niacin AdvReac Intermediate flushing Verified 11/24/23 15:13 quetiapine [From Seroquel] AdvReac Intermediate agitation Verified 11/24/23 15:13 trazodone AdvReac Intermediate agitation Verified 11/24/23 15:13 ELENA Inhibitors AdvReac Unknown Intolerance Verified 11/24/23 15:13 as per records Beta-Blockers AdvReac Unknown Intolerance Verified 11/24/23 15:13 (Beta-Adrenergic Bloc as per records Home Meds Home Medications Medication Instructions Recorded Confirmed buspirone 5 mg tablet 5 mg PO TID 02/09/20 11/24/23 cholecalciferol (vitamin D3) 25 25 mcg PO QAM 02/09/20 11/24/23 mcg (1,000 unit) tablet (Vitamin D3) citalopram 20 mg tablet (Celexa) 20 mg PO QAM 02/09/20 11/24/23 nitroglycerin 0.4 mg sublingual 0.4 mg sublingual DIRECTED PRN 02/09/20 11/24/23 tablet (Nitrostat) Chest Pain pyridoxine (vitamin B6) 100 mg 100 mg PO QAM 02/09/20 11/24/23 tablet (Vitamin B-6) acetaminophen 325 mg tablet 650 mg PO Q6H PRN Fever Or Pain 11/24/23 11/24/23 (Tylenol) bisacodyl 10 mg rectal suppository 10 mg MS DAILY PRN Constipation 11/24/23 11/24/23 (Dulcolax (bisacodyl)) carboxymethylcellulose sodium 1 % 1 drp OPB BID 11/24/23 11/24/23 eye drops magnesium hydroxide 400 mg/5 mL 2,400 mg PO DAILY PRN Constipation 11/24/23 11/24/23 oral suspension (Milk of Magnesia) omeprazole 20 mg capsule,delayed 20 mg PO QAM 11/24/23 11/24/23 release rosuvastatin 20 mg tablet 20 mg PO QAM 11/24/23 11/24/23 sodium phosphates 19 gram-7 118 ml MS DAILY PRN Constipation 11/24/23 11/24/23 gram/118 mL enema (Fleet Enema) tamsulosin 0.4 mg capsule 0.4 mg PO QAM 11/24/23 11/24/23 Results & Data (ED) Vital Signs Vital Signs - 24 hr 11/24/23 12:28 11/24/23 12:28 11/24/23 12:32 Temperature 36.3 C L Temperature Source Oral Pulse Rate 75 71 Pulse Rate [Apical] Pulse Rhythm [Apical] Respiratory Rate 20 Respiratory Effort / Characteristics Respiratory Depth Respiratory Pattern Blood Pressure 119/82 Blood Pressure [Right Arm] Blood Pressure Mean 94 Blood Pressure Mean [Right Arm] Blood Pressure Position [Right Arm] Pulse Oximetry 95 95 Oxygen Delivery Method Room Air Room Air Sepsis New/Unexplained Change in Mental Status No Sepsis Action Taken by Nursing No Action Required 11/24/23 12:33 11/24/23 12:45 11/24/23 14:16 Temperature Temperature Source Pulse Rate Pulse Rate [Apical] 77 Pulse Rhythm [Apical] Regular Respiratory Rate 20 20 20 Respiratory Effort / Characteristics Non-Labored Spontaneous Respiratory Depth Normal Respiratory Pattern Blood Pressure Blood Pressure [Right Arm] 118/78 Blood Pressure Mean Blood Pressure Mean [Right Arm] 91 Blood Pressure Position [Right Arm] Pulse Oximetry 95 96 Oxygen Delivery Method Room Air Room Air Room Air Sepsis New/Unexplained Change in Mental Status Sepsis Action Taken by Nursing 11/24/23 16:00 11/24/23 16:45 11/24/23 17:08 Temperature Temperature Source Pulse Rate 61 Pulse Rate [Apical] 60 Pulse Rhythm [Apical] Respiratory Rate 18 Respiratory Effort / Characteristics Non-Labored Spontaneous Respiratory Depth Normal Respiratory Pattern Regular Blood Pressure Blood Pressure [Right Arm] 134/81 Blood Pressure Mean Blood Pressure Mean [Right Arm] 98 Blood Pressure Position [Right Arm] Semi-fowlers Pulse Oximetry 95 95 Oxygen Delivery Method Room Air Room Air Sepsis New/Unexplained Change in Mental Status Sepsis Action Taken by [facility] Medications Current Medication List: was personally reviewed by me Laboratory Data Attestation: I reviewed the patient's lab results. 11/24/23 12:45 11/24/23 12:45 Lab Results 11/24/23 11/24/23 11/24/23 Range/Units 12:45 14:15 14:31 WBC 7.73 (4.8-10.8) K/ul RBC 4.00 L (4.70-6.10) M/uL Hgb 13.4 L (14.0-18.0) g/dl Hct 40.6 L (42.0-52.0) % MCV 101.5 H (80.0-100.0) fL MCH 33.5 (25.0-34.0) pg MCHC 33.0 (32.0-36.0) g/dL RDW Std Deviation 48.5 H (36.4-46.3) fL RDW Coeff of Mirta 12.9 (11.5-14.5) % Plt Count 127 L (130-400) K/uL MPV 10.7 (9.4-12.4) fL Immature Gran % (Auto) 0.5 % Neut % (Auto) 67.3 % Lymph % (Auto) 16.6 % Twiggs % (Auto) 12.7 % Eos % (Auto) 2.5 % Baso % (Auto) 0.4 % Neut # (Auto) 5.21 (1.40-6.50) K/uL Lymph # (Auto) 1.28 (1.20-3.40) K/uL Twiggs # (Auto) 0.98 H (0.11-0.59) K/uL Eos # (Auto) 0.19 (0.00-0.50) K/uL Baso # (Auto) 0.03 (0.00-0.20) K/uL Immature Gran # (Auto) 0.04 (0.01-0.20) K/uL PT 11.0 (9.0-12.0) Seconds INR 1.0 (0.9-1.1) APTT 28 (21-31) Seconds PTT Ratio 1.0 Sodium 139 (136-145) mmol/L Potassium 4.0 (3.5-5.1) mmol/L Chloride 107 (98-107) mmol/L Carbon Dioxide 27 (21-32) mmol/L Anion Gap 5 (3-11) BUN 19 (6-23) mg/dl Creatinine 0.96 (0.6-1.4) mg/dl Est Cr Clr Drug Dosing 60.7 ml/min Est GFR ( Amer) 80.9 ml/min Est GFR (Non-Af Amer) 69.8 ml/min BUN/Creatinine Ratio 19.8 (10-20) Glucose 102 H (70-99(Fasting)) mg/dl Calcium 8.5 L (8.6-10.3) mg/dl Total Bilirubin 0.6 (0.2-1.0) mg/dl AST 22 (13-39) U/L ALT 20 (7-52) U/L Alkaline Phosphatase 89 (34-104) U/L Troponin I High Sens 25.2 H 26.1 H (0-20) pg/ml Total Protein 6.3 (6.0-8.3) gm/dl Albumin 3.7 (3.4-5.0) gm/dl Globulin 2.6 (2.5-4.0) gm/dl Albumin/Globulin Ratio 1.4 (0.9-2) Lipase 35 (11-82) U/L SARS-CoV-2, RNA, NAAT NEGATIVE (NEGATIVE) Administered Medications Acetaminophen (Acetaminophen 325 Mg Tab) 650 mg PO Q4H PRN PRN Reason: Pain or Fever Stop: 12/24/23 14:24 Last Admin: 11/24/23 16:12 Dose: 650 mg Documented By: GRACE Sodium Chloride (Nss) 1,000 mls @ 80 mls/hr IV .[id number] ESTELLA Stop: 12/24/23 14:29 Last Admin: 11/24/23 16:50 Dose: 80 mls/hr Documented By: GRACE Discontinued Medications Sodium Chloride (Nss) 500 mls @ 500 mls/hr IV .Q1H ESTELLA Stop: 11/24/23 15:29 Last Infusion: 11/24/23 15:18 Dose: 0 mls/hr Documented By: Admin: 11/24/23 14:48 Dose: 500 mls/hr Documented By: VISH Imaging Data Attestation: I personally reviewed and interpreted this imaging study as follows: My Impression: CT of the brain was obtained in the emergency department. My interpretation is no intracranial hemorrhage or mass effect, final report below. X-ray of the right hip was obtained in the emergency department. My interpretation is lucency on the inferior aspect of the right femoral neck, final report below. 1 view chest x-ray was obtained in the emergency department. A large hiatal hernia was noted, final report below. Radiologist's Impression: Cervical Spine CT 11/24/23 12:33 CT SCAN OF THE CERVICAL SPINE CLINICAL HISTORY: Fall. COMPARISON STUDY: CT angiogram of the neck dated 02/09/2020. TECHNIQUE: CT scan of the cervical spine is performed from the skull base to the upper thoracic spine. Images are reviewed in the axial, sagittal, and coronal planes. IV contrast was not administered for this examination. A dose lowering technique was utilized adhering to the principles of ALARA. There is streak artifact from bilateral shoulder arthroplasties. This degrades assessment the lower cervical spine. FINDINGS: Skeletal structures: The skeletal structures are osteopenic. There is no evidence of fracture or subluxation involving the cervical spine. Vertebral body height and alignment are maintained. There is straightening of the cervical lordosis with reversal centered at C5. Anterior osteophytes are seen throughout. The odontoid process and lateral masses are intact. The atlantoaxial articulation is preserved noting productive degenerative change. The spinous processes appear intact. There is moderate multilevel cervical spondylosis. Uncovertebral and facet arthropathy contribute to neural foraminal narrowing at several levels. Intervertebral discs: There is moderate to severe disc space narrowing at all cervical levels between C3-C4 and C7-T1. Multilevel end plate sclerosis is noted. Central canal: Posterior disc osteophyte complexes are seen at all cervical levels between C3-C4 and C6-C7. This likely contributes to multilevel acquired compromise of the central canal. Soft tissues: The prevertebral and paraspinous soft tissues are within normal limits. Pacemaker leads are noted at the left thoracic inlet. There is atherosclerotic calcification of the carotid bulbs. Calvarium: The visualized calvarium at the skull base appears intact. Brain parenchyma: Partially visualized brain parenchyma at the skull base is within normal limits. Sinuses and mastoids: Minimal secretions are noted in the left sphenoid sinus. The mastoid air cells are well pneumatized. Cerumen is seen within the external auditory canals. Lung apices: Clear as visualized. IMPRESSION: 1. There is no evidence of fracture or subluxation involving the cervical spine. 2. Osteopenia and spondylotic change as above. ACT 112: Negative or not required by law. Electronically signed by: Linwood Amador M.D. 11/24/2023 1:51 PM Chest X-Ray 11/24/23 12:33 XR chest 1V portable HISTORY: 88 years-old Male Chest pain, nonspecific COMPARISON: Chest radiograph 03/31/2020 TECHNIQUE: AP view of the chest FINDINGS: Cardiac silhouette is enlarged. Large hiatal hernia with left basilar density is likely atelectatic. Pulmonary vascular congestion. Probable small pleural effusions. No pneumothorax. Bilateral shoulder arthroplasties. Left subclavian pacer. IMPRESSION: 1. Cardiomegaly with pulmonary vascular congestion. 2. Large hiatal hernia. 3. Probable small pleural effusions. ACT 112: Negative or not required by law. The above report was generated using voice recognition software. It may contain grammatical, syntax or spelling errors. Electronically signed by: Jayson Solorzano M.D. 11/24/2023 2:[address] 11/24/23 12:33 CT head/brain wo con CLINICAL HISTORY: 88 years-old Male with fall. Acute head trauma status post fall TECHNIQUE: Multiple axial CT images of the head were obtained without contrast. A dose lowering technique was utilized adhering to the principles of ALARA. COMPARISON: CT cervical spine of same day, head CT 03/31/2020 FINDINGS: No acute intracranial hemorrhage, midline shift, intracranial mass, hydrocephalus, territorial ischemia or abnormal extra-axial collection. Involutional changes with chronic microvascular ischemic disease. Ventriculomegaly is likely on an ex vacuo basis. The calvarium is intact. The paranasal sinuses, mastoid air cells, and middle ear cavities are clear. IMPRESSION: No acute intracranial abnormality or calvarial fracture. ACT 112: Negative or not required by law. The above report was generated using voice recognition software. It may contain grammatical, syntax or spelling errors. Electronically signed by: Jayson Solorzano M.D. 11/24/2023 1:57 PM Hip/Pelvis X-Ray 11/24/23 12:33 XR hip RT 2V w pelvis CLINICAL HISTORY: fall TECHNIQUE: 2 views of the right hip and single frontal view of the pelvis were obtained. Comparison: None available at the time of this dictation. FINDINGS: There is no evidence of an acute fracture. Degenerative changes are seen on the right and there is a total left hip arthroplasty. No soft tissue abnormality is seen. IMPRESSION: No evidence of acute osseous injury. ACT 112: Negative or not required by law. Electronically signed by: Stevo Jaimes M.D. 11/24/2023 1:25 PM Femur X-Ray 11/24/23 12:54 XR tibia fibula RT 2V, XR foot RT min 3V routine, XR femur RT 2V routine CLINICAL HISTORY: fall TECHNIQUE: 2 radiographic views of the right leg , 2 views of the right femur and 2 views of the right foot were obtained. Comparison: None available at the time of this dictation. FINDINGS: There is no evidence of an acute fracture. Degenerative changes are seen most prominently in the joints of the hindfoot and midfoot. Vascular calcifications are seen. Questionable small suprapatellar effusion, evaluation is limited by lack of a true lateral view of the knee. IMPRESSION: No evidence of acute osseous injury. Additional findings as above. ACT 112: Negative or not required by law. Electronically signed by: Stevo Jaimes M.D. 11/24/2023 1:27 PM Foot X-Ray 11/24/23 12:54 XR tibia fibula RT 2V, XR foot RT min 3V routine, XR femur RT 2V routine CLINICAL HISTORY: fall TECHNIQUE: 2 radiographic views of the right leg , 2 views of the right femur and 2 views of the right foot were obtained. Comparison: None available at the time of this dictation. FINDINGS: There is no evidence of an acute fracture. Degenerative changes are seen most prominently in the joints of the hindfoot and midfoot. Vascular calcifications are seen. Questionable small suprapatellar effusion, evaluation is limited by lack of a true lateral view of the knee. IMPRESSION: No evidence of acute osseous injury. Additional findings as above. ACT 112: Negative or not required by law. Electronically signed by: Stevo Jaimes M.D. 11/24/2023 1:27 PM Tibia/Fibula X-Ray 11/24/23 12:54 XR tibia fibula RT 2V, XR foot RT min 3V routine, XR femur RT 2V routine CLINICAL HISTORY: fall TECHNIQUE: 2 radiographic views of the right leg , 2 views of the right femur and 2 views of the right foot were obtained. Comparison: None available at the time of this dictation. FINDINGS: There is no evidence of an acute fracture. Degenerative changes are seen most prominently in the joints of the hindfoot and midfoot. Vascular calcifications are seen. Questionable small suprapatellar effusion, evaluation is limited by lack of a true lateral view of the knee. IMPRESSION: No evidence of acute osseous injury. Additional findings as above. ACT 112: Negative or not required by law. Electronically signed by: Stevo Jaimes M.D. 11/24/2023 1:[address] 11/24/23 13:20 CT hip RT wo con CLINICAL HISTORY: fall TECHNIQUE: Multidetector row helical CT of the right hip was performed without intravenous contrast. Coronal and sagittal reformations were obtained. Automated dose lowering techniques and/or adjustment according to patient size were utilized for this examination. CT DOSE: 1768.14 mGy.cm Comparison: Comparison is made to femur radiograph 11/24/2023 FINDINGS: There is a nondisplaced fracture of the femoral neck. The joint spaces are maintained. No joint effusion is seen. The soft tissues are unremarkable. IMPRESSION: Nondisplaced transcervical fracture of the femoral neck. ACT 112: Negative or not required by law. Electronically signed by: Stevo Jaimes M.D. 11/24/2023 1:41 PM Discharge Plan Visit Data Chief Complaint: Fall Stated Complaint: FALL, LEG PAIN ED Provider: Vinicio Rodriguez Discharge Problem: Closed hip fracture Patient Disposition: Being Evaluated by Hospitalist Forms Stand Alone Forms: [facility] Prescriptions Prescriptions: No Action buspirone 5 mg tablet 5 mg PO TID citalopram [Celexa] 20 mg tablet 20 mg PO QAM nitroglycerin [Nitrostat] 0.4 mg Tablet, Sublingual 0.4 mg sublingual DIRECTED PRN (Reason: Chest Pain) Rx Instructions: PLACE ONE TABLET UNDER THE TONGUE EVERY 5 MINUTES FOR UP TO 3 DOSES OVER 15 MINUTES IF NEEDED FOR CHEST PAIN. Notify RN if no relief of symptoms pyridoxine (vitamin B6) [Vitamin B-6] 100 mg Tablet 100 mg PO QAM cholecalciferol (vitamin D3) [Vitamin D3] 25 mcg (1,000 unit) Tablet 25 mcg PO QAM acetaminophen [Tylenol] 325 mg Tablet 650 mg PO Q6H MDD 3grams/24hr PRN (Reason: Fever Or Pain) magnesium hydroxide [Milk of Magnesia] 400 mg/5 mL Suspension 2,400 mg PO DAILY PRN (Reason: Constipation) Rx Instructions: If no BM in 3 days, administer on 7-3 shift tamsulosin 0.4 mg capsule 0.4 mg PO QAM bisacodyl [Dulcolax (bisacodyl)] 10 mg Suppository 10 mg MS DAILY PRN (Reason: Constipation) Rx Instructions: Give on day 3 on 3-11 shift if no BM after MOM Fleet Enema 19-7 gram/118 mL Enema 118 ml MS DAILY PRN (Reason: Constipation) Rx Instructions: If no BM after Dulcolax, administer on day 4 on 7-3 shift omeprazole 20 mg capsule,delayed release(DR/EC) 20 mg PO QAM rosuvastatin 20 mg tablet 20 mg PO QAM carboxymethylcellulose sodium 1 % Drops 1 drp OPB BID Referrals Referrals: [facility] [Primary Care Provider] - Discharge Problem: Closed hip fracture Qualifiers: Encounter type: initial encounter Laterality: right Qualified Code(s): S72.001A - Fracture of unspecified part of neck of right femur, initial encounter for closed fracture
[2023-11-24 13:10] LABS: Basophils # (auto) 0.03 K/uL (0.00-0.20); Basophils % (auto) 0.4 %; Eosinophils # (auto) 0.19 K/uL (0.00-0.50); Eosinophils % (auto) 2.5 %; Hematocrit (blood only) 40.6 % (42.0-52.0); Hemoglobin 13.4 g/dl (14.0-18.0); Immature Granulocytes # (auto) 0.04 K/uL (0.01-0.20); Immature Granulocytes % (auto) 0.5 %; Lymphocytes # (auto) 1.28 K/uL (1.20-3.40); Lymphocytes % (auto) 16.6 %; Mean Corpuscular Hemoglobin 33.5 pg (25.0-34.0); Mean Corpuscular Volume 101.5 fL (80.0-100.0); Mean Platelet Volume 10.7 fL (9.4-12.4); Monocytes # (auto) 0.98 K/uL (0.11-0.59); Monocytes % (auto) 12.7 %; Neutrophils # (auto) 5.21 K/uL (1.40-6.50); Neutrophils % (auto) 67.3 %; Platelet Count 127 K/uL (130-400); RDW Coefficient of Variation 12.9 % (11.5-14.5); RDW Standard Deviation 48.5 fL (36.4-46.3); White Blood Count 7.73 K/ul (4.8-10.8)
[2023-11-24 13:22] LABS: Troponin I High Sensitivity 25.2 pg/ml (0-20)
[2023-11-24 13:23] LABS: Albumin Globulin Ratio 1.4 (0.9-2); Albumin Level 3.7 gm/dl (3.4-5.0); BUN Creatinine Ratio 19.8 (10-20); Bilirubin,Total 0.6 mg/dl (0.2-1.0); Calcium 8.5 mg/dl (8.6-10.3); Creatinine Clr Calc Pharmacy 60.7 ml/min; Est GFR (African American) 80.9 ml/min; Est GFR (Non-African American) 69.8 ml/min; Globulin 2.6 gm/dl (2.5-4.0); Total Protein 6.3 gm/dl (6.0-8.3)
--- NOTE | 2023-11-24 13:27 | XRay Report ---
XR hip RT 2V w pelvis CLINICAL HISTORY: fall TECHNIQUE: 2 views of the right hip and single frontal view of the pelvis were obtained. Comparison: None available at the time of this dictation. FINDINGS: There is no evidence of an acute fracture. Degenerative changes are seen on the right and there is a total left hip arthroplasty. No soft tissue abnormality is seen. IMPRESSION: No evidence of acute osseous injury. ACT 112: Negative or not required by law. Electronically signed by: Stevo Jaimes M.D. 11/24/2023 1:25 PM
--- NOTE | 2023-11-24 13:29 | XRay Report ---
XR tibia fibula RT 2V, XR foot RT min 3V routine, XR femur RT 2V routine CLINICAL HISTORY: fall TECHNIQUE: 2 radiographic views of the right leg , 2 views of the right femur and 2 views of the righ t foot were obtained. Comparison: None available at the time of this dictation. FINDINGS: There is no evidence of an acute fracture. Degenerative changes are seen most prominently in the join ts of the hindfoot and midfoot. Vascular calcifications are seen. Questionable small suprapatellar ef fusion, evaluation is limited by lack of a true lateral view of the knee. IMPRESSION: No evidence of acute osseous injury. Additional findings as above. ACT 112: Negative or not required by law. Electronically signed by: Stevo Jaimes M.D. 11/24/2023 1:27 PM
[2023-11-24 13:41] LABS: Partial Thromboplastin Time 28 Seconds (21-31)
--- NOTE | 2023-11-24 13:42 | CT Scan Report ---
CT hip RT wo con CLINICAL HISTORY: fall TECHNIQUE: Multidetector row helical CT of the right hip was performed without intravenous contrast. Coronal and sagittal reformations were obtained. Automated dose lowering techniques and/or adjustment according to patient size were utilized for this examination. CT DOSE: 1768.14 mGy.cm Comparison: Comparison is made to femur radiograph 11/24/2023 FINDINGS: There is a nondisplaced fracture of the femoral neck. The joint spaces are maintained. No joint effus ion is seen. The soft tissues are unremarkable. IMPRESSION: Nondisplaced transcervical fracture of the femoral neck. ACT 112: Negative or not required by law. Electronically signed by: Stevo Jaimes M.D. 11/24/2023 1:41 PM
--- NOTE | 2023-11-24 13:53 | CT Scan Report ---
CT SCAN OF THE CERVICAL SPINE CLINICAL HISTORY: Fall. COMPARISON STUDY: CT angiogram of the neck dated 02/09/2020. TECHNIQUE: CT scan of the cervical spine is performed from the skull base to the upper thoracic spine . Images are reviewed in the axial, sagittal, and coronal planes. IV contrast was not administered fo r this examination. A dose lowering technique was utilized adhering to the principles of ALARA. Ther e is streak artifact from bilateral shoulder arthroplasties. This degrades assessment the lower cervi bela spine. FINDINGS: Skeletal structures: The skeletal structures are osteopenic. There is no evidence of fracture or subl uxation involving the cervical spine. Vertebral body height and alignment are maintained. There is st raightening of the cervical lordosis with reversal centered at C5. Anterior osteophytes are seen thro ughout. The odontoid process and lateral masses are intact. The atlantoaxial articulation is preserve d noting productive degenerative change. The spinous processes appear intact. There is moderate multi level cervical spondylosis. Uncovertebral and facet arthropathy contribute to neural foraminal narrow ing at several levels. Intervertebral discs: There is moderate to severe disc space narrowing at all cervical levels between C3-C4 and C7-T1. Multilevel end plate sclerosis is noted. Central canal: Posterior disc osteophyte complexes are seen at all cervical levels between C3-C4 and C6-C7. This likely contributes to multilevel acquired compromise of the central canal. Soft tissues: The prevertebral and paraspinous soft tissues are within normal limits. Pacemaker leads are noted at the left thoracic inlet. There is atherosclerotic calcification of the carotid bulbs. Calvarium: The visualized calvarium at the skull base appears intact. Brain parenchyma: Partially visualized brain parenchyma at the skull base is within normal limits. Sinuses and mastoids: Minimal secretions are noted in the left sphenoid sinus. The mastoid air cells are well pneumatized. Cerumen is seen within the external auditory canals. Lung apices: Clear as visualized. IMPRESSION: 1. There is no evidence of fracture or subluxation involving the cervical spine. 2. Osteopenia and spondylotic change as above. ACT 112: Negative or not required by law. Electronically signed by: Linwood Amador M.D. 11/24/2023 1:51 PM
--- NOTE | 2023-11-24 13:59 | CT Scan Report ---
CT head/brain wo con CLINICAL HISTORY: 88 years-old Male with fall. Acute head trauma status post fall TECHNIQUE: Multiple axial CT images of the head were obtained without contrast. A dose lowering tech nique was utilized adhering to the principles of ALARA. COMPARISON: CT cervical spine of same day, head CT 03/31/2020 FINDINGS: No acute intracranial hemorrhage, midline shift, intracranial mass, hydrocephalus, territorial ischem ia or abnormal extra-axial collection. Involutional changes with chronic microvascular ischemic disea se. Ventriculomegaly is likely on an ex vacuo basis. The calvarium is intact. The paranasal sinuses, mastoid air cells, and middle ear cavities are clear . IMPRESSION: No acute intracranial abnormality or calvarial fracture. ACT 112: Negative or not required by law. The above report was generated using voice recognition software. It may contain grammatical, syntax o r spelling errors. Electronically signed by: Jayson Solorzano M.D. 11/24/2023 1:57 PM
--- NOTE | 2023-11-24 14:41 | History & Physical Report ---
Date of Service November 24, 2023 Assessment & Plan (1) Closed hip fracture: Plan: Assessment: 1. Acute femoral neck fracture right-sided. Orthopedics consulted Dr. Thorne. N.p.o. after midnight. 2. Unwitnessed fall yesterday resulting in hip fracture. Patient has advanced dementia he is a little more confused per family today we will do a CT of the brain and cervical spine for completeness given the unwitnessed fall. 3. Advanced dementia he is from a dementia unit this will be the discharge plan. 4. Dyslipidemia continue home meds. 5. Multiple dental caries will need to see a dentist as an outpatient discussed with patient's daughter and her at the bedside. Plan: As discussed above. Please refer to orders for further planning History of Present Illness Chief Complaint: Nonweightbearing right leg status post fall yesterday Primary Care Provider: Antonio Bliss 88-year-old male who had a fall yesterday at the senior care. Today he is unable to bear weight in his right leg. He came to the ER for further evaluation and treatment. In the ER plain film x-rays were equivocal. CAT scan of the lower extremities performed showed a right femoral neck fracture. We are called admit the patient for further evaluation and treatment requested ER consultation from the ER physician to orthopedics on-call Dr. Thorne. Per the ER Dr. Cia's plan tentatively is to take the patient to the OR tomorrow. Laboratory studies in the ER were reviewed and are stable/unremarkable. The remaining part of this dictation from historical standpoint obtained from his daughter who is at the bedside and is power of estate attorney. The patient has advanced dementia and is a poor historian Allergies Allergy/AdvReac Type Severity Reaction Status Date / Time clopidogrel [From Plavix] Allergy Intermediate Rash,reddened/itchy/puffy Verified 03/31/20 17:55 eyes niacin AdvReac Intermediate flushing Verified 03/31/20 17:49 quetiapine [From Seroquel] AdvReac Intermediate agitation Verified 03/31/20 17:49 trazodone AdvReac Intermediate agitation Verified 03/31/20 17:49 ELENA Inhibitors AdvReac Unknown Intolerance Verified 03/31/20 17:49 as per records Beta-Blockers AdvReac Unknown Intolerance Verified 03/31/20 17:49 (Beta-Adrenergic Bloc as per records Home Medications Medication Instructions Recorded Confirmed Type aspirin 81 mg tablet,delayed 81 mg PO QAM 02/09/20 03/31/20 History release (Aspir-) buspirone 5 mg tablet 5 mg PO HS 02/09/20 03/31/20 History cholecalciferol (vitamin D3) 25 25 mcg PO QDL 02/09/20 03/31/20 History mcg (1,000 unit) tablet (Vitamin D3) citalopram 20 mg tablet (Celexa) 20 mg PO QDL 02/09/20 03/31/20 History nitroglycerin 0.4 mg sublingual 0.4 mg sublingual DIRECTED PRN 02/09/20 03/31/20 History tablet (Nitrostat) Chest Pain pyridoxine (vitamin B6) 100 mg 100 mg PO QDL 02/09/20 03/31/20 History tablet (Vitamin B-6) rosuvastatin 40 mg tablet 40 mg PO QDL 02/09/20 03/31/20 History Past Med/Surg History Medical History Heart disease (10/01/12) Syncope Dementia TIA (transient ischemic attack) Social History Smoking Status: Unknown if ever smoked Cigarettes Per Day: "every so often" "2-3 times a year"; Hx Alcohol Use: Yes Alcohol type: hard liquor Hx Substance Use: No Preferred Language: Serbian Communication Ability: Effective Landscape Management Technician Required: No Beliefs That Will Affect Care: None marital status: Current Living Situation: Spouse Current Living Situation Comment: Lives with ? Feels Safe at Home: Yes Assistive Devices: None Review of Systems Review of Systems: A 10 point review of system was obtained and unless otherwise stated here or in history of present illness are negative and noncontributory to chief complaint. Physical Exam Physical Exam: In General: Pleasant 88-year-old male who is cooperative. However he is only alert and oriented to person only. 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 HEENT: Normocephalic atraumatic pupils are equal round and reactive to light bilaterally. No scleral icterus no conjunctival injection external auditory canals are patent septum is in the midline nose is without discharge oral mucosa is pink and moist without lesion. However, the patient does have poor dental hygiene. Multiple caries right side bicuspid/incisors. The patient denies pain. NECK: Supple no rigidity no lymphadenopathy no thyromegaly no carotid bruits no JVD no masses. HEART: Regular rate and rhythm I do not appreciate any ectopy or rub. No murmur. LUNGS: Clear to auscultation bilaterally and anteriorly with no evidence of adventitious sounds/wheezes rales or rhonchi. ABDOMEN: Soft nontender, no rebound, no peritoneal signs, positive bowel sounds, no appreciable organomegaly. EXTREMITIES: Intact, no peripheral cyanosis, clubbing or edema. Intact neurovascularly bilaterally. He denies pain and is moving his lower extremities in bed without pain NEUROLOGICAL: Unable to fully cooperate with cranial nerve exam however per gross exam cranial nerves II through XII are grossly intact with no focal deficit elicited upon examination. No tremor. And per family he is somewhat more confused than baseline -possibly secondary to mild dehydration however we will do a CT of the brain for completeness given his fall yesterday Results & Data Results & Data Vital Signs (Past 12 Hours) Vital Signs Temp Pulse Pulse Resp BP BP Pulse Ox 11/24/23 14:16 77 20 118/78 96 11/24/23 12:45 20 95 11/24/23 12:33 20 11/24/23 12:32 71 11/24/23 12:28 95 11/24/23 12:28 36.3 C L 75 20 119/82 95 O2 Del Method 11/24/23 14:16 Room Air 11/24/23 12:45 Room Air 11/24/23 12:33 Room Air 11/24/23 12:32 11/24/23 12:28 Room Air 11/24/23 12:28 Room Air Code Status & VTE Plan Code Status DO NOT RESUSCITATE/DO NOT INTUBATE-spoke with the patient's daughter at the bedside who is power of estate attorney the patient has advanced dementia. They are willing to reverse his CODE STATUS for surgery tomorrow. VTE Prophylaxis Plan VTE Prophylaxis will be ordered: Yes PG Care Time/CCT Total # of Minutes Spent Total Time Spent with Patient: Total time spent is greater than 50% in coordination of care (as documented) at patient's floor/unit and/or counseling patient: Coding Level of Care Code 03098 INT INP/OBS CARE MIN Diagnoses Closed hip fracture S72.001A Encounter type: initial encounter Laterality: right (1) Closed hip fracture Encounter type: initial encounter Laterality: right Qualified Code(s): S72.001A - Fracture of unspecified part of neck of right femur, initial encounter for closed fracture
[2023-11-24] MEDS: SODIUM CHLORIDE 0.9% 500 ML IV SCH (14:48)
--- NOTE | 2023-11-24 14:48 | XRay Report ---
XR chest 1V portable HISTORY: 88 years-old Male Chest pain, nonspecific COMPARISON: Chest radiograph 03/31/2020 TECHNIQUE: AP view of the chest FINDINGS: Cardiac silhouette is enlarged. Large hiatal hernia with left basilar density is likely atelectatic. Pulmonary vascular congestion. Probable small pleural effusions. No pneumothorax. Bilateral shoulder arthroplasties. Left subclavian pacer. IMPRESSION: 1. Cardiomegaly with pulmonary vascular congestion. 2. Large hiatal hernia. 3. Probable small pleural effusions. ACT 112: Negative or not required by law. The above report was generated using voice recognition software. It may contain grammatical, syntax o r spelling errors. Electronically signed by: Jayson Solorzano M.D. 11/24/2023 2:47 PM
--- NOTE | 2023-11-24 15:37 | Orthopedic Consultation ---
Date of Consultation November 24, 2023 Assessment & Plan (1) Closed hip fracture: Right transcervical nondisplaced hip fracture patient will require ORIF of his right hip fracture at this odalis Most likely he will require either Synthes femoral neck system versus 7.3 cannulated screws. This will be at Dr. Thorne's discretion. Case has been discussed with Dr. Thorne and x-rays have been reviewed. Plans will be for taking Mr. Ortega to the operating room tomorrow afternoon for his ORIF of his right hip. This was discussed in detail with his family. They are currently the POA of Mr. Ortega and will be available to sign any consents that will be needed. Patient will be made n.p.o. after midnight. Plan for OR tomorrow afternoon. History of Present Illness Reason for Consultation: Right hip fracture History of Present Illness Patient is an 88-year-old male who resides at [facility]. Patient has a history of dementia and was found in his room after an unwitnessed fall. When attempting to put weight on his right lower extremity, the patient was having discomfort and it was felt that he should be evaluated. He was brought into the emergency room. He was seen by the staff and x-rays were taken. X-rays were equivocal and a CT scan was then performed. This did show a nondisplaced transcervical fracture of the right hip. This was discussed with the family and the patient was admitted under the medicine service. We have been asked to take care of his hip fracture. Currently his family is present to give his history patient is pleasantly confused. He does answer some questions appropriately. He states he is not having pain while at rest. Patient's family states that the patient was just actually flexing his hip up to approxi mately 80 degree and he did not seem uncomfortable. Allergies Allergy/AdvReac Type Severity Reaction Status Date / Time clopidogrel [From Plavix] Allergy Intermediate Rash,reddened/itchy/puffy Verified 11/24/23 15:13 eyes niacin AdvReac Intermediate flushing Verified 11/24/23 15:13 quetiapine [From Seroquel] AdvReac Intermediate agitation Verified 11/24/23 15:13 trazodone AdvReac Intermediate agitation Verified 11/24/23 15:13 ELENA Inhibitors AdvReac Unknown Intolerance Verified 11/24/23 15:13 as per records Beta-Blockers AdvReac Unknown Intolerance Verified 11/24/23 15:13 (Beta-Adrenergic Bloc as per records Home Medications Medication Instructions Recorded Confirmed Type buspirone 5 mg tablet 5 mg PO TID 02/09/20 11/24/23 History cholecalciferol (vitamin D3) 25 25 mcg PO QAM 02/09/20 11/24/23 History mcg (1,000 unit) tablet (Vitamin D3) citalopram 20 mg tablet (Celexa) 20 mg PO QAM 02/09/20 11/24/23 History nitroglycerin 0.4 mg sublingual 0.4 mg sublingual DIRECTED PRN 02/09/20 11/24/23 History tablet (Nitrostat) Chest Pain pyridoxine (vitamin B6) 100 mg 100 mg PO QAM 02/09/20 11/24/23 History tablet (Vitamin B-6) acetaminophen 325 mg tablet 650 mg PO Q6H PRN Fever Or Pain 11/24/23 11/24/23 History (Tylenol) bisacodyl 10 mg rectal suppository 10 mg AL DAILY PRN Constipation 11/24/23 11/24/23 History (Dulcolax (bisacodyl)) carboxymethylcellulose sodium 1 % 1 drp OPB BID 11/24/23 11/24/23 History eye drops magnesium hydroxide 400 mg/5 mL 2,400 mg PO DAILY PRN Constipation 11/24/23 11/24/23 History oral suspension (Milk of Magnesia) omeprazole 20 mg capsule,delayed 20 mg PO QAM 11/24/23 11/24/23 History release rosuvastatin 20 mg tablet 20 mg PO QAM 11/24/23 11/24/23 History sodium phosphates 19 gram-7 118 ml AL DAILY PRN Constipation 11/24/23 11/24/23 History gram/118 mL enema (Fleet Enema) tamsulosin 0.4 mg capsule 0.4 mg PO QAM 11/24/23 11/24/23 History Patient History Medical History Heart disease (10/01/12) Syncope Dementia TIA (transient ischemic attack) Social History Smoking Status: Unknown if ever smoked Cigarettes Per Day: "every so often" "2-3 times a year"; Hx Alcohol Use: Yes Alcohol type: hard liquor Hx Substance Use: No Preferred Language: Macanese Communication Ability: Effective Information Technology Intern Required: No Beliefs That Will Affect Care: None marital status: Current Living Situation: Spouse Current Living Situation Comment: Lives with ? Feels Safe at Home: Yes Assistive Devices: None Physical Exam Physical Exam: On examination, the patient is an 88-year-old white male who appears his stated age. He is pleasantly confused with history of dementia. He answers some questions appropriately. No acute distress. Pleasant and cooperative. Examination of his right lower extremity shows leg lengths appear equal. He is moving his ankles with dorsiflexion and plantarflexion without difficulty. I am able to take him through gentle flexion to about 30 degrees before he has pain in the right hip and groin. No further range of motion is done with the right hip or the right knee at this time secondary to right hip fracture. No complaints of pain over the left hip, knee, ankle. Upper extremities are unaffected and appear nontender at the shoulders, elbows, and wrist. Patient is moving his upper extremities appropriately. No obvious complaints of cervical, thoracic, low back pain. There is no gross motor or sensory loss seen at this time. Results & Data Vital Signs (Past 12 Hours) Vital Signs Temp Pulse Pulse Resp BP BP Pulse Ox 11/24/23 14:16 77 20 118/78 96 11/24/23 12:45 20 95 11/24/23 12:33 20 11/24/23 12:32 71 11/24/23 12:28 95 11/24/23 12:28 36.3 C L 75 20 119/82 95 O2 Del Method 11/24/23 14:16 Room Air 11/24/23 12:45 Room Air 11/24/23 12:33 Room Air 11/24/23 12:32 11/24/23 12:28 Room Air 11/24/23 12:28 Room Air Laboratory Results Laboratory Results WBC 7.73 K/ul (4.8-10.8) 11/24/23 12:45 RBC 4.00 M/uL (4.70-6.10) L 11/24/23 12:45 Hgb 13.4 g/dl (14.0-18.0) L 11/24/23 12:45 Hct 40.6 % (42.0-52.0) L 11/24/23 12:45 MCV 101.5 fL (80.0-100.0) H 11/24/23 12:45 MCH 33.5 pg (25.0-34.0) 11/24/23 12:45 MCHC 33.0 g/dL (32.0-36.0) 11/24/23 12:45 RDW Std Deviation 48.5 fL (36.4-46.3) H 11/24/23 12:45 RDW Coeff of Mirta 12.9 % (11.5-14.5) 11/24/23 12:45 Plt Count 127 K/uL (130-400) L 11/24/23 12:45 MPV 10.7 fL (9.4-12.4) 11/24/23 12:45 Immature Gran % (Auto) 0.5 % 11/24/23 12:45 Neut % (Auto) 67.3 % 11/24/23 12:45 Lymph % (Auto) 16.6 % 11/24/23 12:45 [place] % (Auto) 12.7 % 11/24/23 12:45 Eos % (Auto) 2.5 % 11/24/23 12:45 Baso % (Auto) 0.4 % 11/24/23 12:45 Neut # (Auto) 5.21 K/uL (1.40-6.50) 11/24/23 12:45 Lymph # (Auto) 1.28 K/uL (1.20-3.40) 11/24/23 12:45 [place] # (Auto) 0.98 K/uL (0.11-0.59) H 11/24/23 12:45 Eos # (Auto) 0.19 K/uL (0.00-0.50) 11/24/23 12:45 Baso # (Auto) 0.03 K/uL (0.00-0.20) 11/24/23 12:45 Immature Gran # (Auto) 0.04 K/uL (0.01-0.20) 11/24/23 12:45 PT 11.0 Seconds (9.0-12.0) 11/24/23 12:45 INR 1.0 (0.9-1.1) 11/24/23 12:45 APTT 28 Seconds (21-31) 11/24/23 12:45 PTT Ratio 1.0 11/24/23 12:45 Sodium 139 mmol/L (136-145) 11/24/23 12:45 Potassium 4.0 mmol/L (3.5-5.1) 11/24/23 12:45 Chloride 107 mmol/L (98-107) 11/24/23 12:45 Carbon Dioxide 27 mmol/L (21-32) 11/24/23 12:45 Anion Gap 5 (3-11) 11/24/23 12:45 BUN 19 mg/dl (6-23) 11/24/23 12:45 Creatinine 0.96 mg/dl (0.6-1.4) 11/24/23 12:45 Est Cr Clr Drug Dosing 60.7 ml/min 11/24/23 12:45 Est GFR ( Amer) 80.9 ml/min 11/24/23 12:45 Est GFR (Non-Af Amer) 69.8 ml/min 11/24/23 12:45 BUN/Creatinine Ratio 19.8 (10-20) 11/24/23 12:45 Glucose 102 mg/dl (70-99(Fasting)) H 11/24/23 12:45 Calcium 8.5 mg/dl (8.6-10.3) L 11/24/23 12:45 Total Bilirubin 0.6 mg/dl (0.2-1.0) 11/24/23 12:45 AST 22 U/L (13-39) 11/24/23 12:45 ALT 20 U/L (7-52) 11/24/23 12:45 Alkaline Phosphatase 89 U/L (34-104) 11/24/23 12:45 Troponin I High Sens 26.1 pg/ml (0-20) H 11/24/23 14:31 Total Protein 6.3 gm/dl (6.0-8.3) 11/24/23 12:45 Albumin 3.7 gm/dl (3.4-5.0) 11/24/23 12:45 Globulin 2.6 gm/dl (2.5-4.0) 11/24/23 12:45 Albumin/Globulin Ratio 1.4 (0.9-2) 11/24/23 12:45 Lipase 35 U/L (11-82) 11/24/23 12:45 SARS-CoV-2, RNA, NAAT NEGATIVE (NEGATIVE) 11/24/23 14:[address] 11/24/23 12:33 CT SCAN OF THE CERVICAL SPINE CLINICAL HISTORY: Fall. COMPARISON STUDY: CT angiogram of the neck dated 02/09/2020. TECHNIQUE: CT scan of the cervical spine is performed from the skull base to the upper thoracic spine. Images are reviewed in the axial, sagittal, and coronal planes. IV contrast was not administered for this examination. A dose lowering technique was utilized adhering to the principles of ALARA. There is streak artifact from bilateral shoulder arthroplasties. This degrades assessment the lower cervical spine. FINDINGS: Skeletal structures: The skeletal structures are osteopenic. There is no evidence of fracture or subluxation involving the cervical spine. Vertebral body height and alignment are maintained. There is straightening of the cervical lordosis with reversal centered at C5. Anterior osteophytes are seen throughout. The odontoid process and lateral masses are intact. The atlantoaxial articulation is preserved noting productive degenerative change. The spinous processes appear intact. There is moderate multilevel cervical spondylosis. Uncovertebral and facet arthropathy contribute to neural foraminal narrowing at several levels. Intervertebral discs: There is moderate to severe disc space narrowing at all cervical levels between C3-C4 and C7-T1. Multilevel end plate sclerosis is noted. Central canal: Posterior disc osteophyte complexes are seen at all cervical levels between C3-C4 and C6-C7. This likely contributes to multilevel acquired compromise of the central canal. Soft tissues: The prevertebral and paraspinous soft tissues are within normal limits. Pacemaker leads are noted at the left thoracic inlet. There is atherosclerotic calcification of the carotid bulbs. Calvarium: The visualized calvarium at the skull base appears intact. Brain parenchyma: Partially visualized brain parenchyma at the skull base is within normal limits. Sinuses and mastoids: Minimal secretions are noted in the left sphenoid sinus. The mastoid air cells are well pneumatized. Cerumen is seen within the external auditory canals. Lung apices: Clear as visualized. IMPRESSION: 1. There is no evidence of fracture or subluxation involving the cervical spine. 2. Osteopenia and spondylotic change as above. ACT 112: Negative or not required by law. Electronically signed by: Linwood Amador M.D. 11/24/2023 1:51 PM Chest X-Ray 11/24/23 12:33 XR chest 1V portable HISTORY: 88 years-old Male Chest pain, nonspecific COMPARISON: Chest radiograph 03/31/2020 TECHNIQUE: AP view of the chest FINDINGS: Cardiac silhouette is enlarged. Large hiatal hernia with left basilar density is likely atelectatic. Pulmonary vascular congestion. Probable small pleural effusions. No pneumothorax. Bilateral shoulder arthroplasties. Left subclavian pacer. IMPRESSION: 1. Cardiomegaly with pulmonary vascular congestion. 2. Large hiatal hernia. 3. Probable small pleural effusions. ACT 112: Negative or not required by law. The above report was generated using voice recognition software. It may contain grammatical, syntax or spelling errors. Electronically signed by: Jayson Solorzano M.D. 11/24/2023 2:[address] 11/24/23 12:33 CT head/brain wo con CLINICAL HISTORY: 88 years-old Male with fall. Acute head trauma status post fall TECHNIQUE: Multiple axial CT images of the head were obtained without contrast. A dose lowering technique was utilized adhering to the principles of ALARA. COMPARISON: CT cervical spine of same day, head CT 03/31/2020 FINDINGS: No acute intracranial hemorrhage, midline shift, intracranial mass, hydrocephalus, territorial ischemia or abnormal extra-axial collection. Involutional changes with chronic microvascular ischemic disease. Ventriculomegaly is likely on an ex vacuo basis. The calvarium is intact. The paranasal sinuses, mastoid air cells, and middle ear cavities are clear. IMPRESSION: No acute intracranial abnormality or calvarial fracture. ACT 112: Negative or not required by law. The above report was generated using voice recognition software. It may contain grammatical, syntax or spelling errors. Electronically signed by: Jayson Solorzano M.D. 11/24/2023 1:57 PM Hip/Pelvis X-Ray 11/24/23 12:33 XR hip RT 2V w pelvis CLINICAL HISTORY: fall TECHNIQUE: 2 views of the right hip and single frontal view of the pelvis were obtained. Comparison: None available at the time of this dictation. FINDINGS: There is no evidence of an acute fracture. Degenerative changes are seen on the right and there is a total left hip arthroplasty. No soft tissue abnormality is seen. IMPRESSION: No evidence of acute osseous injury. ACT 112: Negative or not required by law. Electronically signed by: Stevo Jaimes M.D. 11/24/2023 1:25 PM Femur X-Ray 11/24/23 12:54 XR tibia fibula RT 2V, XR foot RT min 3V routine, XR femur RT 2V routine CLINICAL HISTORY: fall TECHNIQUE: 2 radiographic views of the right leg , 2 views of the right femur and 2 views of the right foot were obtained. Comparison: None available at the time of this dictation. FINDINGS: There is no evidence of an acute fracture. Degenerative changes are seen most prominently in the joints of the hindfoot and midfoot. Vascular calcifications are seen. Questionable small suprapatellar effusion, evaluation is limited by lack of a true lateral view of the knee. IMPRESSION: No evidence of acute osseous injury. Additional findings as above. ACT 112: Negative or not required by law. Electronically signed by: Stevo Jaimes M.D. 11/24/2023 1:27 PM Foot X-Ray 11/24/23 12:54 XR tibia fibula RT 2V, XR foot RT min 3V routine, XR femur RT 2V routine CLINICAL HISTORY: fall TECHNIQUE: 2 radiographic views of the right leg , 2 views of the right femur and 2 views of the right foot were obtained. Comparison: None available at the time of this dictation. FINDINGS: There is no evidence of an acute fracture. Degenerative changes are seen most prominently in the joints of the hindfoot and midfoot. Vascular calcifications are seen. Questionable small suprapatellar effusion, evaluation is limited by lack of a true lateral view of the knee. IMPRESSION: No evidence of acute osseous injury. Additional findings as above. ACT 112: Negative or not required by law. Electronically signed by: Stevo Jaimes M.D. 11/24/2023 1:27 PM Tibia/Fibula X-Ray 11/24/23 12:54 XR tibia fibula RT 2V, XR foot RT min 3V routine, XR femur RT 2V routine CLINICAL HISTORY: fall TECHNIQUE: 2 radiographic views of the right leg , 2 views of the right femur and 2 views of the right foot were obtained. Comparison: None available at the time of this dictation. FINDINGS: There is no evidence of an acute fracture. Degenerative changes are seen most prominently in the joints of the hindfoot and midfoot. Vascular calcifications are seen. Questionable small suprapatellar effusion, evaluation is limited by lack of a true lateral view of the knee. IMPRESSION: No evidence of acute osseous injury. Additional findings as above. ACT 112: Negative or not required by law. Electronically signed by: Stevo Jaimes M.D. 11/24/2023 1:[address] 11/24/23 13:20 CT hip RT wo con CLINICAL HISTORY: fall TECHNIQUE: Multidetector row helical CT of the right hip was performed without intravenous contrast. Coronal and sagittal reformations were obtained. Automated dose lowering techniques and/or adjustment according to patient size were utilized for this examination. CT DOSE: 1768.14 mGy.cm Comparison: Comparison is made to femur radiograph 11/24/2023 FINDINGS: There is a nondisplaced fracture of the femoral neck. The joint spaces are maintained. No joint effusion is seen. The soft tissues are unremarkable. IMPRESSION: Nondisplaced transcervical fracture of the femoral neck. ACT 112: Negative or not required by law. Electronically signed by: Stevo Jaimes M.D. 11/24/2023 1:41 PM (1) Closed hip fracture Encounter type: initial encounter Laterality: right Qualified Code(s): S72.001A - Fracture of unspecified part of neck of right femur, initial encounter for closed fracture
--- NOTE | 2023-11-24 16:07 | Electrocardiogram Report ---
Test Reason : Blood Pressure : / mmHG Vent. Rate : 065 BPM Atrial Rate : 065 BPM P-R Int : 262 ms QRS Dur : 082 ms QT Int : 468 ms P-R-T Axes : -29 -40 044 degrees QTc Int : 486 ms Atrial-paced rhythm with prolonged AV conduction Left axis deviation Prolonged QT Abnormal ECG When compared with ECG of 31-MAR-2020 17:14, Nonspecific T wave abnormality ( Confirmed by Pepe Huerta ([id number]) on 11/24/2023 4:06:46 PM Referred By: Confirmed By:Pepe Huerta
[2023-11-24] MEDS: ACETAMINOPHEN 325 MG TAB PO PRN (16:12)
[2023-11-24] MEDS: SODIUM CHLORIDE 0.9% 1,000 ML IV SCH (16:50)
[2023-11-24] MEDS: busPIRone 5 MG TAB PO SCH (21:09)
[2023-11-24] MEDS: ARTIFICIAL TEARS OP SCH (21:14)
--- OUTSIDE RECORDS SUMMARY | 2023-11-25 01:37 | External Medical Summary | Summary of Care ---
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 Name Role Phone Unavailable Primary Care Provider Unavailabl e Encounter Details Date Type Department Care Team (Late st Contact Info) Description 11/04/2023 Result Scan Unspecified Department Victor M Devine O, DO [address] [place] [address] <No scans attached> Allergies Active Allergy Reactions Criticality Noted Date Comments Niacin Er Flushing 11/23/2011 Clopidogrel Edema face/lips/tongue High 03/27/2020 documented as of this encounter (statuses as of 11/04/2023) Medications Medication Sig Dispensed Refills Start Date End Date Status VITAMIN D3 1000 UNIT PO CAPS one capsule by mouth daily 0 Active VITAMIN B-6 100 MG PO TABS 1 TABLET DAILY 0 09/27/2013 Active Nitroglycerin 0.4 MG Sublingual Tablet Sublingual (Nitrostat)Indicati ons:Coronary artery disease involving [place] coronary artery of [place] heart without angina pectoris,Presence of drug coated stent in left circumflex coronary artery PLACE 1 TABLET UNDER TONGUE EVERY 10 MINUTES NEEDED WITH CHEST PAIN UP TO 3 DOSES IN 15 MINUTES. 25 Tablet 3 03/30/2022 Active busPIRone HCl 5 MG Oral Tablet (Buspar)Indications :Anxiety state Take by mouth 1 Tablet in the morning AND 1 Tablet at noon AND 1 Tablet before bedtime. 270 Tablet 3 03/30/2022 Active Additional Information Patient taking differently:5 mg OralDaily(AM), Reported on 01/14/2023 Omeprazole 20 MG Oral Capsule Delayed Release (PriLOSEC) Take by mouth 1 Capsule in the morning. 90 Capsule 3 03/30/2022 Active Citalopram Hydrobromide 20 MG Oral Tablet (CeleXA) Take by mouth 1 Tablet in the morning. 90 Tablet 3 03/30/2022 Active Rosuvastatin Calcium 20 MG Oral Tablet (Crestor)Indication s:Coronary artery disease involving [place] coronary artery of [place] heart without angina pectoris,Dyslipidem ia, goal LDL below 70 Take by mouth 1 Tablet in the morning. 90 Tablet 3 03/30/2022 Active Tamsulosin HCl 0.4 MG Oral Capsule (Flomax)Indications :Urinary frequency Take 2 Capsules by mouth in the morning. 90 Capsule 3 07/14/2022 Active Artificial Tears 1 % Ophthalmic Solution (carboxymethylcellu lose) Instill 2 Drops into both eyes in the morning and 2 Drops before bedtime. 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/2013 Hyperlipidemia with target LDL less than 100 PSA elevation 01/08/2012 Overview: Prostate Biopsy on 05/12/11 at [facility] in [place] No malignancy Presence of drug coated sten t in left circumflex coronary artery 12/23/2011 Overview: 11/26/11 CAD (coronary artery disease) 11/23/2011 documented as of this encounter (statuses as of 11/04/2023) Resolved Problems Problem Noted Date Diagnosed Date Resolved Date Kidney disease, chronic, sta ge III (GFR 30-59 ml/min) 05/01/2019 08/01/2020 Overview: Per CKD protocol SSS (sick sinus syndrome) 11/29/2017 Prediabetes 11/02/2017 08/31/2019 Overview: Per Prediabetes protocol #1 Memory loss 07/05/2015 07/13/2017 Vasovagal syncope 11/22/2014 07/13/2017 Chest pain 09/27/2013 07/13/2017 ELENA inhibitor intolerance 12/22/2012 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 Overview: bradycardia Reflux esophagitis 2 documented as of this encounter (statuses as of 11/04/2023) Immunizations Name Administration Dates Next Due COVID-19 mRNA, LNP-s, No Pre serve, 2-Dose Series (Takeacoder) 09/18/2021,12/12/2020,11/21/2020 Pneumococcal Conjugate Vacc, 13 Valent (Prevnar) 07/06/2016 Pneumococcal Polysaccharide PPV23 (Pneumovax) 02/19/2008 Seasonal Influenza, PF, 6 M & above, IM , (FluLaval or Fluzone) 06/28/2021,06/21/2020,07/11/2018,07/13 Seasonal Influenza, Quadriva lent Hd (Fluzone Hd) 06/29/2022 Seasonal Influenza, Quadriva lent, No Preserve, IM 06/01/2016,07/05/2015 Seasonal Influenza, Split, I IV3, With Preserve, Inj 06/04/2014,06/22/2013,05/28/2012,06/19 Seasonal Influenza, Trivalen t, Adjuvanted, 65+ yrs 06/01/2019 TD - Tetanus/Diptheria (ADULT) 09/20/2008 TDAP (age 10 and older)(Boostrix) 07/13/2017 Varicella Zoster Vaccine (Adult) 09/17/2010 Zoster Vaccine Recombinant (Shingrix) 02/11/2021 ,09/04/2020 documented as of this encounter Social History Tobacco Use Types Packs/Day Years Used Date Smoking Tobacco: Former Pipe Smokeless Tobacco: Never Alcohol Use Standard Drinks/Week Comments Yes 0 (1 standard drink = 0.6 oz pur e alcohol) rare PHQ-2 Answer Date Recorded PHQ Adult Total Score 0 06/29/2022 Hunger Vital Sign Answer Date Recorded Within the past 12 months, y ou worried that your food would run out before you got the money to buy more. Never true 06/29/20 22 Within the past 12 months, t he food you bought just didn't last and you didn't have money to get more. Never true 06/29/2022 Sex and Gender Information Value Date Recorded Sex Assigned at Male 02/20/2019 9:01 AM EDT Gender Identity Male 02/20/2019 9:01 AM EDT Sexual Orientation Straight 02/20/2019 9: 01 AM EDT Job Start Date Occupation Industry Not on file Not on file Not on file documented as of this encounter Plan of Treatment Upcoming Encounters Date Type Department Care Team (Late st Contact Info) Description 01/20/2024 10:00 AM EDT Cardiac Studies Cardiology, [facility] [address] [facility] [place] [address] [facility] [address] [facility] [place] [address] Health Maintenance Due Date Last Done Comments COVID-19 Vaccine ( season) 2023 09/18/2021, 12/12/2020, 11/21/2020 Influenza Vaccine (FLU shot) (#1) 2023 06/29/2022, 06/28/2021, 06/21/2020, Additional history exists Albumin/Creatinine Ratio 06/29/20232 022, 07/01/2021, 05/16/2019 CKD HGB USE SMARTSET 65088 06/29/202306/29, 07/01/2021, 09/28/2019, Additional history exists CKD PHOS USE SMARTSET 65857 06/29/202306/20, 07/01/2021, 08/07/2019 Depression Screening 06/29/2023 06/29/2022 DTaP,Tdap,and Td Vaccines (2 - Td or Tdap) 07/13/2027 07/13/2017, 09/20/2008 Pneumococcal Vaccine: 65+ Years Completed 07/06/2016, 02/19/2008 Zoster Vaccines Completed 02/11/2021, 08/20, 09/17/2010 GARDASIL-HPV IMMUNIZATION SERIES Aged Out No longer eligible based on patient's age to complete this topic Hepatitis B Aged Out No longer eligi ble based on patient's age to complete this topic MENINGOCOCCAL (MENACTRA/MENVEO) Aged Out No longer eligible based on patient's age to complete this topic documented as of this encounter Medical Devices Implanted Type Area Polisher Apprentice Device Identifier Shelf Expiration Date Model / Serial / Lot Lens Intraoc 19.0 - [id number] - [id number] Implanted:Qty: 1 on 07/30/2020 by Luís Menon MD at OR [facility] Left: Eye [employer]CH [employer] LOMB 11/17/2024 [id number] / [id number] / [id number] Lens Intraoc 18.5 - [id number] - [id number] Implanted:Qty: 1 on 08/13/2020 by Luís Menon MD at OR [facility] Right: Eye [employer]OMB 01/17/2025 [id number] / [id number] / [id number] documented as of this encounter Procedures Procedure Name Priority Date/Time Associated Diagnosis Comments CARDIOLOGY SCANNED RESULT 11/04/2023 documented in this encounter Results * CARDIOLOGY SCANNED RESULT (11/04/2023) 11/04/2023 Victor M MENDOZA documented in this encounter
--- OUTSIDE RECORDS SUMMARY | 2023-11-25 01:37 | External Medical Summary | Summary of Care ---
Author Name Unknown Organization [facility] Address [address] [facility] [place] [address] Phone [phone] Care Team Providers Care Plant Technician Name Role Phone Unavailable Primary Care Provider Unavailabl e Encounter Details Date Type Department Care Team (Late st Contact Info) Description 11/04/2023 Result Scan Unspecified Department Victor M Devine O, DO [address] [place] [address] <No scans attached> Allergies Active Allergy Reactions [...] Tablet Sublingual (Nitrostat)Indicati ons:Coronary artery disease involving [place] coronary artery of [place] heart without angina pectoris,Presence of drug coated [...] Oral Tablet (Crestor)Indication s:Coronary artery disease involving [place] coronary artery of [place] heart without angina pectoris,Dyslipidem ia, goal LDL [...] 01/08/2012 Overview: Prostate Biopsy on 05/12/11 at [facility] in [place] No malignancy Presence of drug coated sten [...] mRNA, LNP-s, No Pre serve, 2-Dose Series ([employer]) 09/18/2021,12/12/2020,11/21/2020 Pneumococcal Conjugate Vacc, 13 Valent (Prevnar) [...] 01/20/2024 10:00 AM EDT Cardiac Studies Cardiology, [facility] [address] [facility] [place] [address] [facility] [address] [facility] [place] [address] Health Maintenance Due Date Last Done Comments COVID-19 Vaccine ( season) 2023 09/18/2021, 12/12/2020, 11/21/2020 Influenza Vaccine (FLU shot) (#1) 2023 06/29/2022, 06/28/2021, 06/21/2020, Additional history exists Albumin/Creatinine Ratio 06/29/20232 022, 07/01/2021, 05/16/2019 CKD HGB USE SMARTSET 62393 06/29/202306/29, 07/01/2021, 09/28/2019, Additional history exists CKD PHOS USE SMARTSET 72852 06/29/202306/20, 07/01/2021, 08/07/2019 Depression Screening 06/29/2023 06/29/2022 [...] this encounter Medical Devices Implanted Type Area Veneer Taping Machine Operator Device Identifier Shelf Expiration Date Model / Serial / Lot Lens Intraoc 19.0 - [id number] - [id number] Implanted:Qty: 1 on 07/30/2020 by Luís Menon MD at OR [facility] Left: Eye [employer]OMB 11/17/2024 [id number] / [id number] / [id number] Lens Intraoc 18.5 - [id number] - [id number] Implanted:Qty: 1 on 08/13/2020 by Luís Menon MD at OR [facility] Right: Eye [employer]OMB 01/17/2025 [id number] / [id number] / [id number] documented as of this encounter Procedures Procedure Name Priority Date/Time Associated Diagnosis Comments CARDIOLOGY SCANNED RESULT 11/04/2023 documented in this encounter Results * CARDIOLOGY SCANNED RESULT (11/04/2023) 11/04/2023 Victor M MENDOZA documented in this encounter
[2023-11-25 06:07] LABS: Basophils # (auto) 0.03 K/uL (0.00-0.20); Basophils % (auto) 0.4 %; Eosinophils # (auto) 0.22 K/uL (0.00-0.50); Eosinophils % (auto) 2.7 %; Immature Granulocytes # (auto) 0.02 K/uL (0.01-0.20); Immature Granulocytes % (auto) 0.2 %; Lymphocytes # (auto) 1.13 K/uL (1.20-3.40); Lymphocytes % (auto) 13.9 %; Mean Corpuscular Hemoglobin 33.7 pg (25.0-34.0); Mean Corpuscular Hgb Conc 33.3 g/dL (32.0-36.0); Mean Platelet Volume 10.6 fL (9.4-12.4); Monocytes # (auto) 0.75 K/uL (0.11-0.59); Monocytes % (auto) 9.2 %; Neutrophils % (auto) 73.6 %; Platelet Count 114 K/uL (130-400); RDW Coefficient of Variation 12.7 % (11.5-14.5); RDW Standard Deviation 47.5 fL (36.4-46.3); Red Blood Count 3.86 M/uL (4.70-6.10); White Blood Count 8.15 K/ul (4.8-10.8)
[2023-11-25 06:28] LABS: Albumin Level 3.5 gm/dl (3.4-5.0); Bilirubin,Total 0.9 mg/dl (0.2-1.0); Calcium 8.2 mg/dl (8.6-10.3); Magnesium 1.8 mg/dl (1.7-2.4); Potassium 4.1 mmol/L (3.5-5.1)
[2023-11-25 06:30] LABS: Prothrombin Time 11.2 Seconds (9.0-12.0)
[2023-11-25 06:34] LABS: Albumin Globulin Ratio 1.5 (0.9-2); BUN Creatinine Ratio 15.9 (10-20); Creatinine Clr Calc Pharmacy 66.2 ml/min; Est GFR (African American) 88.3 ml/min; Est GFR (Non-African American) 76.2 ml/min; Globulin 2.3 gm/dl (2.5-4.0); Total Protein 5.8 gm/dl (6.0-8.3)
[2023-11-25 06:53] LABS: Thyroid Stimulating Hormone 2.103 uIu/ml (0.300-4.500)
[2023-11-25] MEDS: TAMSULOSIN HCL 0.4 MG CAP PO SCH (08:03)
[2023-11-25] MEDS: PYRIDOXINE HCL 50 MG TAB PO SCH (08:03)
[2023-11-25] MEDS: CHOLECALCIFEROL 25 MCG (1000 UNITS) TAB PO SCH (08:03)
[2023-11-25] MEDS: ROSUVASTATIN CALCIUM 20 MG TAB PO SCH (08:03)
[2023-11-25] MEDS: PANTOprazole 40 MG TAB PO SCH (08:03)
[2023-11-25] MEDS: CITALOPRAM 20 MG TAB PO SCH (08:04)
--- NOTE | 2023-11-25 08:33 | Anesthesiology Consultation ---
Date of Service November 25, 2023 Assessment & Plan Chart Review Chart Review: Acceptable Risk for Surgery and Patient NOT seen in Pre Admission Testing History Surgery Operation Date: 11/25/23 12:55 Proposed Procedures p Right Hip Cannulated Screw Open Reduction Internal Fixation - Ted Thorne MD Height/Weight Height: 6 ft 2 in Weight: 88.6 kg Allergies Allergy/AdvReac Type Severity Reaction Status Date / Time clopidogrel [From Plavix] Allergy Intermediate Rash,reddened/itchy/puffy Verified 11/24/23 15:13 eyes niacin AdvReac Intermediate flushing Verified 11/24/23 15:13 quetiapine [From Seroquel] AdvReac Intermediate agitation Verified 11/24/23 15:13 trazodone AdvReac Intermediate agitation Verified 11/24/23 15:13 ELENA Inhibitors AdvReac Unknown Intolerance Verified 11/24/23 15:13 as per records Beta-Blockers AdvReac Unknown Intolerance Verified 11/24/23 15:13 (Beta-Adrenergic Bloc as per records Medications Home Medications Medication Instructions Recorded Confirmed Last Taken buspirone 5 mg tablet 5 mg PO TID 02/09/20 11/24/23 11/24/23 cholecalciferol (vitamin D3) 25 25 mcg PO QAM 02/09/20 11/24/23 11/24/23 mcg (1,000 unit) tablet (Vitamin D3) citalopram 20 mg tablet (Celexa) 20 mg PO QAM 02/09/20 11/24/23 11/24/23 nitroglycerin 0.4 mg sublingual 0.4 mg sublingual DIRECTED PRN 02/09/20 11/24/23 Unknown tablet (Nitrostat) Chest Pain pyridoxine (vitamin B6) 100 mg 100 mg PO QAM 02/09/20 11/24/23 11/24/23 tablet (Vitamin B-6) acetaminophen 325 mg tablet 650 mg PO Q6H PRN Fever Or Pain 11/24/23 11/24/23 11/24/23 (Tylenol) bisacodyl 10 mg rectal suppository 10 mg UT DAILY PRN Constipation 11/24/23 11/24/23 Unknown (Dulcolax (bisacodyl)) carboxymethylcellulose sodium 1 % 1 drp OPB BID 11/24/23 11/24/23 11/24/23 eye drops magnesium hydroxide 400 mg/5 mL 2,400 mg PO DAILY PRN Constipation 11/24/23 11/24/23 Unknown oral suspension (Milk of Magnesia) omeprazole 20 mg capsule,delayed 20 mg PO QAM 11/24/23 11/24/23 11/24/23 release rosuvastatin 20 mg tablet 20 mg PO QAM 11/24/23 11/24/23 11/24/23 sodium phosphates 19 gram-7 118 ml UT DAILY PRN Constipation 11/24/23 11/24/23 Unknown gram/118 mL enema (Fleet Enema) tamsulosin 0.4 mg capsule 0.4 mg PO QAM 11/24/23 11/24/23 11/24/23 Active Medications Generic Name Dose Route Start Last Admin Trade Name Freq PRN Reason Stop Dose Admin Acetaminophen 650 mg 11/24/23 14:25 11/24/23 16:12 Acetaminophen 325 Mg Tab PO 12/24/23 14:24 650 mg Q4H PRN Administration Pain or Fever Artificial Tears 1 drops 11/24/23 21:00 11/25/23 08:03 Artificial Tears OP 12/24/23 20:59 1 drops BID ESTELLA Administration Buspirone HCl 5 mg 11/24/23 21:00 11/25/23 08:03 Buspirone 5 Mg Tab PO 12/24/23 20:59 5 mg TID ESTELAL Administration Citalopram Hydrobromide 20 mg 11/25/23 09:00 11/25/23 08:04 Citalopram 20 Mg Tab PO 12/25/23 08:59 20 mg QAM ESTELLA Administration Sodium Chloride 1,000 mls @ 80 mls/hr 11/24/23 14:30 11/25/23 04:41 Nss IV 12/24/23 14:29 80 mls/hr .[id number] ESTELLA Administration Pantoprazole Sodium 40 mg 11/25/23 09:00 11/25/23 08:03 Pantoprazole 40 Mg Tab PO 12/25/23 08:59 40 mg QAM ESTELLA Administration Pyridoxine HCl 100 mg 11/25/23 09:00 11/25/23 08:03 Pyridoxine Hcl 50 Mg Tab PO 12/25/23 08:59 100 mg QAM ESTELLA Administration Rosuvastatin Calcium 20 mg 11/25/23 09:00 11/25/23 08:03 Rosuvastatin Calcium 20 Mg Tab PO 12/25/23 08:59 20 mg QAM ESTELLA Administration Tamsulosin HCl 0.4 mg 11/25/23 09:00 11/25/23 08:03 Tamsulosin Hcl 0.4 Mg Cap PO 12/25/23 08:59 0.4 mg QAM ESTELLA Administration Vitamin D 25 mcg 11/25/23 09:00 11/25/23 08:03 Cholecalciferol 25 Mcg (1000 Units) Tab PO 12/25/23 08:59 25 mcg QAM ESTELLA Administration Past Medical History Medical History Heart disease (10/01/12) Syncope Dementia TIA (transient ischemic attack) Social History Smoking Status: Unknown if ever smoked tobacco type: pipe Smoking cigarettes per day: "every so often" "2-3 times a year" Hx Alcohol Use: Yes Alcohol type: hard liquor alcohol intake frequency: holidays/special occasions only Hx Substance Use: No Physical Exam Vital Signs Last Vital Signs Temp 36.3 C L 11/24/23 12:28 Pulse 61 11/25/23 06:00 Resp 17 11/25/23 06:00 BP 154/93 H 11/25/23 06:00 Pulse Ox 97 11/25/23 06:00 O2 Del Method Room Air 11/25/23 06:00 Testing Laboratory Results 11/25/23 05:47 11/25/23 05:47 PT 11.2 Seconds (9.0-12.0) 11/25/23 05:47 INR 1.0 (0.9-1.1) 11/25/23 05:47 APTT 28 Seconds (21-31) 11/24/23 12:45
[2023-11-25] MEDS ORDERED: ROCURONIUM BROMIDE 10 MG/ML 5 ML VIAL IV ONE (13:14)
[2023-11-25] MEDS ORDERED: SUGAMMADEX SODIUM 200 MG/2 ML VIAL IV ONE (13:14)
[2023-11-25] MEDS ORDERED: LIDOCAINE 2% 2 ML VIAL/AMP(20MG/ML) INFIL ONE (13:14)
[2023-11-25] MEDS ORDERED: PROPOFOL IV EMULSION 10 MG/ML 20 ML VIAL IV ONE (13:14)
[2023-11-25] MEDS ORDERED: fentaNYL citrate PF 100 MCG/2 ML VIAL ONE (13:14)
[2023-11-25] MEDS ORDERED: DEXAMETHASONE SOD INJ 4 MG/ML VIAL ONE (13:14)
[2023-11-25] MEDS ORDERED: ONDANSETRON INJ 2 MG/ML 2 ML VIAL ONE (13:14)
[2023-11-25] MEDS: LACTATED RINGER'S 1,000 ML IV SCH (14:18)
[2023-11-25] MEDS ORDERED: NALOXONE HCL 0.4 MG/1 ML VIAL/CARP IV PRN (14:27)
[2023-11-25] MEDS ORDERED: ePHEDrine sulfate 50 MG/ML AMP IV PRN (14:27)
[2023-11-25] MEDS ORDERED: ATROPINE SULFATE 0.1 MG/ML 10ML SYR IV PRN (14:27)
--- NOTE | 2023-11-25 14:35 | Hospitalist Progress Note ---
Date of Service November 25, 2023 Assessment & Plan (1) Closed hip fracture: Plan: Mechanical fall with resultant right hip fracture. Orthopedic consultation appreciated. He will undergo open reduction with internal fixation later today, November 24 (2) Dementia: Plan: Supportive care. Continue current medical management (3) Hyperlipidemia: Plan: Stable. Continue current medical management Plan Anticipate eventual need for rehab placement postoperative Admission and Anticipated Discharge Date Admission Date: November 24, 2023 Subjective Awake but severely demented. He needs a Cohn catheter but this will be placed when he is under anesthesia for the hip fracture repair. Review of Systems 2 Review of Systems: The patient is unable to reliably answer any questions regarding review of systems due to severe dementia Physical Exam 2 Physical Exam: General-alert but disoriented. No fever. HEENT-head atraumatic and normocephalic, pupils equal and reactive to light, extraocular muscles intact Neck-no lymphadenopathy or thyromegaly, trachea midline Chest-clear to auscultation. No rales, wheezing or rhonchi Cardiac-regular rate and rhythm, normal S1 and S2 Abdomen-normal bowel sounds, no hepatosplenomegaly Extremities-no cyanosis, clubbing, or edema Neuro-cranial nerves II through XII intact, motor and sensory function within normal limits, strength symmetrical , no focal deficits. No apparent focal motor deficits Psych-awake but confused with dementia Results & Data Results & Data Vital Signs (Past 12 Hours) Vital Signs Temp Pulse Resp BP Pulse Ox O2 Del Method 11/25/23 14:09 37.1 C 60 20 141/93 H 94 Room Air 11/25/23 06:00 61 17 154/93 H 97 Room Air Laboratory Results 11/25/23 05:47 11/25/23 05:47 PG Care Time/CCT Total # of Minutes Spent Total Time Spent with Patient: Total time spent is greater than 50% in coordination of care (as documented) at patient's floor/unit and/or counseling patient: Coding Level of Care Code 34648 SUB INP/OBS CARE 3/50MIN Diagnoses Closed hip fracture S72.001A Encounter type: initial encounter Laterality: right Dementia F03.90 Hyperlipidemia E78.5 (1) Closed hip fracture Encounter type: initial encounter Laterality: right Qualified Code(s): S 72.001A - Fracture of unspecified part of neck of right femur, initial encounter for closed fracture
--- NOTE | 2023-11-25 14:37 | History & Physical Bridge Note ---
Date of Service November 25, 2023 History & Physical Bridge Note I have examined the patient, reviewed the History & Physical and in the interval since the performance of the History & Physical I have noted the following changes of clinical significance: no changes noted
[2023-11-25] MEDS: ceFAZolin 2000MG 2,000 MG/15 ML SYR IV ONE (14:45)
[2023-11-25] MEDS: ceFAZolin 2,000 MG/15 ML IV PUSH IV ONE (14:46)
[2023-11-25] MEDS ORDERED: ePHEDrine sulfate 50 MG/5 ML SYR ONE (15:11)
--- NOTE | 2023-11-25 16:01 | Post Operative Brief Note ---
Immediate Post Op Note v1 Date of Surgery November 25, 2023 Pre & Post Diagnosis Operation Date: 11/25/23 12:55 Pre-Op Diagnosis: Right transcervical nondisplaced hip fracture Post-Op Diagnosis: Right transcervical nondisplaced hip fracture I identified the patient and participated in the time-out.: Yes Procedure Operation Date: 11/25/23 12:55 Actual Procedures p Right Hip Cannulated Screw Open Reduction Internal Fixation(Right) - Ted Thorne MD Surgeon Ted Thorne MD Multimedia Journalist None Estimated Blood Loss 25 Findings Consistent with Post-Op Diagnosis
--- NOTE | 2023-11-25 16:07 | Operative Report ---
Post Operative Report Pre & Post Diagnosis Operation Date: 11/25/23 12:55 Pre-Op Diagnosis: Right transcervical nondisplaced hip fracture Post-Op Diagnosis: Right transcervical nondisplaced hip fracture I identified the patient and participated in the time-out.: Yes Procedure Operation Date: 11/25/23 12:55 Actual Procedures p Right Hip Cannulated Screw Open Reduction Internal Fixation(Right) - Ted Thorne MD Surgeon Ted Thorne MD Design Maker None Estimated Blood Loss 25 Findings Consistent with Post-Op Diagnosis Nondisplaced subcapital fracture of the right hip Specimens None Indications Components used: Synthes cannulated 7.5 millimeter screws: 3 screws 100 mm length with short thread Description of Procedure Following satisfactory general anesthesia the patient was supine on the operating room table. The right leg was placed in the traction device in the left leg in the well-leg canseco. Positioning was confirmed with fluoroscopy in both AP and lateral planes. The leg was prepared with ChloraPrep and draped sterilely. A surgical timeout was performed. A 5 to 6 cm incision was made on the lateral side of the femur and deepened through the subcutaneous tissues. Hemostasis was obtained. The tent the fascia was divided longitudinally in line with the incision and the vastus muscle split down to the bone. Fluoroscopy was used to place 3 guidewires in an inverted triangle fashion into the femoral neck and head. All screw position placement and length were confirmed in AP and lateral fluoroscopic imaging. The screws were then measured. The lateral cortex was overdrilled. Each individual screw was advanced over the guidewire to its full depth. AP and lateral fluoroscopy again firm good position of the screws and fracture. The guidewires were removed. The wound was irrigated with 100 cc of normal saline. The fascia was closed with interrupted [id number] sutures of 1 Vicryl. The superficial subcutaneous layer was closed with 1 Vicryl interrupted followed by a running suture of 3 oh strata fix. Local anesthetic was placed dry sterile dressing was applied. The patient was awakened extubated and transferred back to his bed having tolerated the procedure in good condition. I attest to the content of the Intraoperative Record and any orders documented therein. Any exceptions are noted below.
--- NOTE | 2023-11-25 16:53 | Fluoroscopy Report ---
INTRAOPERATIVE RADIOGRAPH CLINICAL HISTORY: Open reduction and internal fixation of the right proximal femur. Fluoro time: 62 seconds Ka,r: 18.38 mGy FINDINGS: A single spot fluoroscopic view of the right hip is presented. Comparison is made to radio graphs dated 11/24/2023. There are 3 cannulated intertrochanteric cortical lag screws transfixing a sub capital fracture. Near-anatomic alignment is maintained. The orthopedic hardware appears intact. IMPRESSION: Intraoperative images from open reduction and internal fixation of a right proximal femor al fracture as above. Electronically signed by: Linwood Amador M.D. 11/25/2023 4:51 PM
--- NOTE | 2023-11-25 17:11 | Anesthesiology Progress Note ---
Date of Service November 25, 2023 Anesthesia Post Procedure Vital Signs Vital Signs: Temp Pulse Pulse Resp BP BP Pulse Ox 11/25/23 17:00 78 20 109/73 94 11/25/23 16:50 81 18 109/65 94 11/25/23 16:40 36.4 C L 87 18 115/66 94 11/25/23 16:30 83 20 117/68 95 11/25/23 16:20 80 18 115/65 97 11/25/23 16:10 36.0 C L 86 20 122/70 95 11/25/23 14:09 37.1 C 60 20 141/93 H 94 11/25/23 06:00 61 17 154/93 H 97 11/25/23 02:01 61 18 152/96 H 92 11/25/23 00:00 61 18 134/85 92 11/24/23 23:07 62 11/24/23 21:06 60 22 151/86 H 94 11/24/23 19:14 60 18 141/83 H 92 O2 Del Method O2 Flow Rate 11/25/23 17:00 Nasal Cannula 2 11/25/23 16:50 Nasal Cannula 2 11/25/23 16:40 Nasal Cannula 2 11/25/23 16:30 Oxymask 4 11/25/23 16:20 Oxymask 4 11/25/23 16:10 Oxymask 6 11/25/23 14:09 Room Air 11/25/23 06:00 Room Air 11/25/23 02:01 Room Air 11/25/23 00:00 Room Air 11/24/23 23:07 11/24/23 21:06 Room Air 11/24/23 19:14 Room Air Transfer of Care Handoff Completed per policy Notes Mental Status: alert / awake / arousable (patient has dementia) Patient Amnestic to Procedure: Yes Nausea / Vomiting: adequately controlled Pain: adequately controlled Airway Patency, RR, SpO2: stable & adequate BP & HR: stable & adequate Hydration State: stable & adequate Anesthetic Complications: no major complications apparent
[2023-11-25] MEDS: fentaNYL citrate PF 100 MCG/2 ML VIAL IV PRN (17:16)
[2023-11-25] MEDS: LIDOCAINE 1%/EPINEPHRINE 1:100,000 20 ML VIAL ONE (20:12)
[2023-11-25] MEDS: SODIUM CHLORIDE 0.9% 1,000 ML IV SCH (20:51)
[2023-11-25] MEDS ORDERED: OLANZapine ZYDIS 5 MG ORALLY DIS. TAB PO PRN (21:36)
[2023-11-25] MEDS: ceFAZolin 2000MG 2,000 MG/15 ML SYR IV SCH (23:32)
[2023-11-26 06:34] LABS: Basophils # (auto) 0.01 K/uL (0.00-0.20); Basophils % (auto) 0.1 %; Hematocrit (blood only) 36.3 % (42.0-52.0); Hemoglobin 12.2 g/dl (14.0-18.0); Immature Granulocytes # (auto) 0.04 K/uL (0.01-0.20); Immature Granulocytes % (auto) 0.4 %; Lymphocytes % (auto) 6.6 %; Mean Corpuscular Hemoglobin 34.1 pg (25.0-34.0); Mean Corpuscular Hgb Conc 33.6 g/dL (32.0-36.0); Mean Corpuscular Volume 101.4 fL (80.0-100.0); Mean Platelet Volume 10.6 fL (9.4-12.4); Monocytes # (auto) 0.61 K/uL (0.11-0.59); Monocytes % (auto) 6.7 %; Neutrophils # (auto) 7.88 K/uL (1.40-6.50); Neutrophils % (auto) 86.2 %; Platelet Count 124 K/uL (130-400); RDW Standard Deviation 48.3 fL (36.4-46.3); Red Blood Count 3.58 M/uL (4.70-6.10); White Blood Count 9.14 K/ul (4.8-10.8)
[2023-11-26 06:44] LABS: BUN Creatinine Ratio 15.6 (10-20); Creatinine Clr Calc Pharmacy 60.7 ml/min; Est GFR (African American) 80.9 ml/min; Est GFR (Non-African American) 69.8 ml/min; Potassium 4.4 mmol/L (3.5-5.1)
--- NOTE | 2023-11-26 07:31 | Orthopedic Progress Note ---
Date of Service November 26, 2023 Assessment & Plan (1) Closed hip fracture: Plan: Postop day 1 status post right hip with 7.3 cannulated screws PT/OT protocols. Weightbearing as tolerated. If patient is having much in the way of pain, he may need to remain bed to chair initially. DVT prophylaxis-aspirin p.o. twice daily, SCDs Pain management as written. DC planning-patient to return to [facility] when stable. Instructions placed in the discharge section. Admission and Anticipated Discharge Date Admission Date: November 24, 2023 Subjective Postop day 1 Patient sleeping upon arrival. Easily awoken. Patient is somewhat somnolent but is pleasantly confused. He does follow some commands. Currently he seems to be comfortable. Physical Exam Physical Exam: Dressings are intact. Nursing states that the dressings did need a little bit reinforced last night which helped. No overt drainage noted coming from the dressing at this time. Thigh is soft and nontender. Calves are soft nontender. Patient does dorsiflex and plantarflex the foot when asked to. Neurovascular appears intact Results & Data Vital Signs (Past 12 Hours) Vital Signs Temp Pulse Resp BP Pulse Ox O2 Del Method O2 Flow Rate 11/26/23 03:00 36.5 C 60 16 117/76 97 Nasal Cannula 2 11/25/23 23:00 36.5 C 67 20 118/73 96 Nasal Cannula Laboratory Results 11/26/23 Range/Units 06:04 WBC 9.14 (4.8-10.8) K/ul RBC 3.58 L (4.70-6.10) M/uL Hgb 12.2 L (14.0-18.0) g/dl Hct 36.3 L (42.0-52.0) % MCV 101.4 H (80.0-100.0) fL MCH 34.1 H (25.0-34.0) pg MCHC 33.6 (32.0-36.0) g/dL RDW Std Deviation 48.3 H (36.4-46.3) fL RDW Coeff of Mirta 13.0 (11.5-14.5) % Plt Count 124 L (130-400) K/uL MPV 10.6 (9.4-12.4) fL Immature Gran % (Auto) 0.4 % Neut % (Auto) 86.2 % Lymph % (Auto) 6.6 % [place] % (Auto) 6.7 % Eos % (Auto) 0.0 % Baso % (Auto) 0.1 % Neut # (Auto) 7.88 H (1.40-6.50) K/uL Lymph # (Auto) 0.60 L (1.20-3.40) K/uL [place] # (Auto) 0.61 H (0.11-0.59) K/uL Eos # (Auto) 0.00 (0.00-0.50) K/uL Baso # (Auto) 0.01 (0.00-0.20) K/uL Immature Gran # (Auto) 0.04 (0.01-0.20) K/uL Sodium 136 (136-145) mmol/L Potassium 4.4 (3.5-5.1) mmol/L Chloride 107 (98-107) mmol/L Carbon Dioxide 25 (21-32) mmol/L Anion Gap 4 (3-11) BUN 15 (6-23) mg/dl Creatinine 0.96 (0.6-1.4) mg/dl Est Cr Clr Drug Dosing 60.7 ml/min Est GFR ( Amer) 80.9 ml/min Est GFR (Non-Af Amer) 69.8 ml/min BUN/Creatinine Ratio 15.6 (10-20) Glucose 138 H (70-99(Fasting)) mg/dl Calcium 8.0 L (8.6-10.3) mg/dl 25-OH Vitamin D Total 25.0 L (30-100) ng/ml (1) Closed hip fracture Encounter type: initial encounter Laterality: right Qualified Code(s): S72.001A - Fracture of unspecified part of neck of right femur, initial encounter for closed fracture
[2023-11-26] MEDS: ASPIRIN 81 MG ECTAB PO SCH (09:43)
--- NOTE | 2023-11-26 15:15 | Hospitalist Progress Note ---
Date of Service November 26, 2023 Assessment & Plan (1) Closed hip fracture: Plan: Mechanical fall with resultant right hip fracture. Orthopedic consultation appreciated. Postoperative day #1 after open reduction internal fixation right hip fracture with nailing procedure (2) Dementia: Plan: Stable. Supportive care. Continue current medical management (3) Hyperlipidemia: Plan: Stable. Continue current medical management Plan [facility]ful return [facility] this [facility] Admission and Anticipated Discharge Date Admission Date: November 24, 2023 Subjective Awake and pleasant. He is doing remarkably well after hip surgery yesterday, November 24. Postoperative day #1 after hip fracture nailing. Orthopedic entry noted. Hemoglobin is only down slightly to 12.2. IV fluid rate decreased. Hopefully he can return to [facility] this [facility] Review of Systems 2 Review of Systems: The patient is unable to reliably answer any questions regarding review of systems due to severe dementia Physical Exam 2 Physical Exam: General-alert but disoriented. No fever. HEENT-head atraumatic and normocephalic, pupils equal and reactive to light, extraocular muscles intact Neck-no lymphadenopathy or thyromegaly, trachea midline Chest-clear to auscultation. No rales, wheezing or rhonchi Cardiac-regular rate and rhythm, normal S1 and S2 Abdomen-normal bowel sounds, no hepatosplenomegaly Extremities-no cyanosis, clubbing, or edema. Right hip surgical site is intact, clean and dry Neuro-cranial nerves II through XII intact, motor and sensory function within normal limits, strength symmetrical , no focal deficits. No apparent focal motor deficits Psych-awake but confused with dementia Results & Data Results & Data Vital Signs (Past 12 Hours) Vital Signs Temp Pulse Resp BP Pulse Ox O2 Del Method O2 Flow Rate 11/26/23 14:50 36.5 C 62 16 115/69 96 Room Air 11/26/23 11:31 36.5 C 69 18 112/68 92 Room Air 11/26/23 07:41 36.7 C 61 16 130/74 96 Nasal Cannula 1.0 Laboratory Results 11/26/23 06:04 11/26/23 06:04 PG Care Time/CCT Total # of Minutes Spent Total Time Spent with Patient: Total time spent is greater than 50% in coordination of care (as documented) at patient's floor/unit and/or counseling patient: Coding Level of Care Code 42524 SUB INP/OBS CARE 2/35MIN Diagnoses Closed hip fracture S72.001A Encounter type: initial encounter Laterality: right Dementia F03.90 Hyperlipidemia E78.5 (1) Closed hip fracture Encounter type: initial encounter Laterality: right Qualified Code(s): S 72.001A - Fracture of unspecified part of neck of right femur, initial encounter for closed fracture
[2023-11-27 05:06] LABS: Basophils # (auto) 0.02 K/uL (0.00-0.20); Basophils % (auto) 0.3 %; Eosinophils % (auto) 2.9 %; Hemoglobin 11.8 g/dl (14.0-18.0); Immature Granulocytes # (auto) 0.03 K/uL (0.01-0.20); Immature Granulocytes % (auto) 0.4 %; Lymphocytes % (auto) 20.3 %; Mean Corpuscular Hemoglobin 33.5 pg (25.0-34.0); Mean Corpuscular Hgb Conc 32.8 g/dL (32.0-36.0); Mean Corpuscular Volume 102.3 fL (80.0-100.0); Mean Platelet Volume 10.3 fL (9.4-12.4); Monocytes # (auto) 0.77 K/uL (0.11-0.59); Monocytes % (auto) 11.2 %; Neutrophils # (auto) 4.48 K/uL (1.40-6.50); Neutrophils % (auto) 64.9 %; Platelet Count 119 K/uL (130-400); RDW Coefficient of Variation 13.2 % (11.5-14.5); RDW Standard Deviation 49.4 fL (36.4-46.3); Red Blood Count 3.52 M/uL (4.70-6.10)
[2023-11-27 05:19] LABS: BUN Creatinine Ratio 17.5 (10-20); Calcium 8.1 mg/dl (8.6-10.3); Est GFR (African American) 79.9 ml/min; Est GFR (Non-African American) 68.9 ml/min; Potassium 4.2 mmol/L (3.5-5.1)
--- NOTE | 2023-11-27 11:24 | Discharge Summary ---
Date of Service November 27, 2023 Admission HPI Per Admitting Provider 88-year-old male who [facility] Today he is unable to bear weight in his right leg. He came to the ER for further evaluation and treatment. In the ER plain film x-rays were equivocal. CAT scan of the lower extremities performed showed a right femoral neck fracture. We are called admit the patient for further evaluation and treatment requested ER consultation from the ER physician to orthopedics on-call Dr. Thorne. Per the ER Dr. Cai's plan tentatively is to take the patient to the OR tomorrow. Laboratory studies in the ER were reviewed and are stable/unremarkable. The remaining part of this dictation from historical standpoint obtained from his daughter who is at the bedside and is power of accredited pharmacy technician. The patient has advanced dementia and is a poor historian Principal Diagnosis Closed right hip fracture due to mechanical fall Discharge Exam General-alert but disoriented. No fever. HEENT-head atraumatic and normocephalic, pupils equal and reactive to light, extraocular muscles intact Neck-no lymphadenopathy or thyromegaly, trachea midline Chest-clear to auscultation. No rales, wheezing or rhonchi Cardiac-regular rate and rhythm, normal S1 and S2 Abdomen-normal bowel sounds, no hepatosplenomegaly Extremities-no cyanosis, clubbing, or edema. Right hip surgical site is intact, clean and dry Neuro-cranial nerves II through XII intact, motor and sensory function within normal limits, strength symmetrical , no focal deficits. No apparent focal motor deficits Psych-awake but confused with dementia Discharge Data Allergies Allergy/AdvReac Type Severity Reaction Status Date / Time clopidogrel [From Plavix] Allergy Intermediate Rash,reddened/itchy/puffy Verified 11/24/23 15:13 eyes niacin AdvReac Intermediate flushing Verified 11/24/23 15:13 quetiapine [From Seroquel] AdvReac Intermediate agitation Verified 11/24/23 15:13 trazodone AdvReac Intermediate agitation Verified 11/24/23 15:13 ELENA Inhibitors AdvReac Unknown Intolerance Verified 11/24/23 15:13 as per records Beta-Blockers AdvReac Unknown Intolerance Verified 11/24/23 15:13 (Beta-Adrenergic Bloc as per records Consultations 11/24/23 14:25 Consult Orthopedic Surgery Routine Procedures Performed Operation Date: 11/25/23 12:55 Actual Procedures p Right Hip Cannulated Screw Open Reduction Internal Fixation(Right) - Ted Thorne MD Ordered Studies 11/24/23 12:33 CT cervical spine wo con Stat CT head/brain wo con Stat 11/24/23 13:20 CT hip RT wo con Stat 11/25/23 12:55 FL hip RT 2-3V Routine Hospital Course (1) Closed hip fracture: Mechanical fall with resultant right hip fracture. Orthopedic consultation appreciated. Postoperative day #2 after open reduction internal fixation right hip fracture with nailing procedure. He is doing quite well and ambulating. Medically stable (2) Dementia: Stable. Supportive care. Continue current medical management (3) Hyperlipidemia: Stable. Continue current medical management Plan Return to [facility] today, November 26 Total Time Total Time Spent Total Time Spent (In Minutes): 45-minute Discharge Plan Discharge Items Patient Disposition: Transfer [facility] Fac Reason For Visit: FX HIP Discharge Diagnosis: Right hip fracture due to mechanical fall, status post open reduction internal fixation with hip nailing Activity: Per Instructions section Weightbearing: Right weightbearing Weightbearing Comment: as tolerated with walker Non-emergency contact: Surgeon Call non-emergency contact if: you have any medication questions, your pain is not controlled, your temperature is above 101.5, your wound has increased redness and your wound has increased drainage Follow-up/Referrals: [facility] [Primary Care Provider] - Ted Thorne MD [Surgeon] - ( follow-up with Dr. Thorne or his PA in 2 weeks from the day of surgery for your first postoperative visit.) Diet: Regular Addtl Attending Provider Instructions: All medications remain the same. Take aspirin 81 mg twice daily as directed by orthopedic surgery. Follow-up with orthopedic surgery as scheduled Addtl Interventional Nurse Provider Instructions: [facility] DISCHARGE INSTRUCTIONS: HIP FRACTURE SELF CARE INSTRUCTIONS: A. You are to ambulate with a walker or crutches for approximately 6 weeks. B. You are WEIGHT BEARING TOLERATE/ PARTIAL WEIGHT BEARING/ TOE TOUCH WEIGHT BEARING on your operative lower extremity for at least 6 weeks. C. Wear low heeled shoes with non-slip soles D. Be sure that your floors are free of things that could trip you throw rugs, electrical cords, and small objects. Avoid wet and waxed floors, especially with crutches/walker/cane. E. Try to walk several times a day with rest periods between. F. You may shower 48 hours after surgery and get the incision area wet, but DO NOT soak or submerge incision area in water. (No baths, swimming pools, hot tubs) G. You may have a large, band-aid like dressing over your incision (Aquacel). This will remain on your incision for 7 days, and then can be removed. You CAN shower with this on. If incision is leaking through the dressing, please call the office . H. Do NOT apply soap or any ointment/lotions directly over incision. I. You may use ice as needed to operative site. SPECIAL CARE INSTRUCTIONS: VERY IMPORTANT TO READ AND REVIEW A. You may be at risk for phlebitis or blood clots. a. Wear surgical stockings (GENET hose) for 2 weeks after surgery to improve circulation and reduce swelling. b. Take ASPIRIN 81 mg twice daily for 4 weeks or as directed. This is your blood thinner. . B. There are a few signs you need to watch for after you are home. Call [facility] at [phone] if you experience any of the following: a. If you have a temperature of 101 degrees or higher. b. Sudden increase in pain in your hip not relieved by rest or pain medication. c. Any fluid or drainage from the incision; redness of the incision. d. Shortness of breath or chest pain. C. Pain Medication: a. You will be prescribed pain medication upon dis charge that should last till your first post-operative appointment. b. If you experience nausea and/or skin rash, discontinue this medication and contact our office for an alternative medication. c. Caution- narcotic pain medication can cause constipation. FOLLOW UP VISIT: Please call [facility] at [phone] to schedule a follow up appointment 10-14 days from the date of your surgery date. Pending Studies at Discharge: No Stand-Alone Forms: My Little1 Skilled Items Patient informed of condition?: Yes DNR: Yes Discharge Level of Care: Skilled Communicable Disease: No Discharge Prognosis: Stable Lines: None Urinary Catheter: No Medications and DC Order Prescriptions: New aspirin 81 mg Tablet,Delayed Release (Dr/Ec) 81 mg PO BID Qty: 0 0RF Continued buspirone 5 mg tablet 5 mg PO TID citalopram [Celexa] 20 mg tablet 20 mg PO QAM nitroglycerin [Nitrostat] 0.4 mg Tablet, Sublingual 0.4 mg sublingual DIRECTED PRN (Reason: Chest Pain) Rx Instructions: PLACE ONE TABLET UNDER THE TONGUE EVERY 5 MINUTES FOR UP TO 3 DOSES OVER 15 MINUTES IF NEEDED FOR CHEST PAIN. Notify RN if no relief of symptoms pyridoxine (vitamin B6) [Vitamin B-6] 100 mg Tablet 100 mg PO QAM cholecalciferol (vitamin D3) [Vitamin D3] 25 mcg (1,000 unit) Tablet 25 mcg PO QAM acetaminophen [Tylenol] 325 mg Tablet 650 mg PO Q6H MDD 3grams/24hr PRN (Reason: Fever Or Pain) magnesium hydroxide [Milk of Magnesia] 400 mg/5 mL Suspension 2,400 mg PO DAILY PRN (Reason: Constipation) Rx Instructions: If no BM in 3 days, administer on 7-3 shift tamsulosin 0.4 mg capsule 0.4 mg PO QAM bisacodyl [Dulcolax (bisacodyl)] 10 mg Suppository 10 mg GA DAILY PRN (Reason: Constipation) Rx Instructions: Give on day 3 on 3-11 shift if no BM after MOM Fleet Enema 19-7 gram/118 mL Enema 118 ml GA DAILY PRN (Reason: Constipation) Rx Instructions: If no BM after Dulcolax, administer on day 4 on 7-3 shift omeprazole 20 mg capsule,delayed release(DR/EC) 20 mg PO QAM rosuvastatin 20 mg tablet 20 mg PO QAM carboxymethylcellulose sodium 1 % Drops 1 drp OPB BID Discharge Orders: Discharge Order (Routine); Ordered 11/27/23 Ordered By: Taran Mcghee Admission Data Admit Date/Time: 11/24/23 14:26 Attending Provider: Taran Mcghee Admit Provider: Johnny Mtz Primary Care Provider: Cherelle Bliss Other Providers: Cherelle Bliss; Ted Thonre Coding Level of Care Code 23067 INP/OBS DISCH >30 MIN Diagnoses Closed hip fracture S72.001A Encounter type: initial encounter Laterality: right Dementia F03.90 Hyperlipidemia E78.5
== END 2023-11-27 12:30 | DRG 482 ==
LOC: ED 12:22 → SUATTDRO 14:26 → EDINP 14:26 → 4W 11-25 19:13